=== PATIENT | male | born 1970 | race American Indian/Alaskan Native ===

== ENCOUNTER 2019-09-12 05:58 | Observation (INO) | payer BC, OTHER ==
[~2019-09-12 05:58] MED LIST: LACTATED RINGERS 1,000 ML IV SCH
[2019-09-12] MEDS ORDERED: MIDAZOLAM 2 MG/2 ML INJ IV NR (06:00)
[2019-09-12] MEDS ORDERED: ceFAZolin/STERILE WATER 2 GM/20 ML SYRINGE IV NR (07:01)
--- NOTE | 2019-09-12 07:21 | Anesthesia Day of Surgery ---
Anesthesia Day of Surgery - Day of Surgery Patient Examined: Yes Patient H&P Reviewed: Yes Patient is NPO: Yes Beta Blockers: Yes
--- NOTE | 2019-09-12 07:21 | Anesthesia Consultation ---
Anesthesia Consult and Med Hx Date of service: 09/12/19 - Airway Anesthetic Teeth Evaluation: Good ROM Head & Neck: Adequate Mental/Hyoid Distance: Adequate Mallampati Class: Class III Intubation Access Assessment: Possibly Difficult (large childress) - Pulmonary Exam CTA: Yes - Cardiac Exam Cardiac Exam: RRR - Pre-Operative Health Status ASA Pre-Surgery Classification: ASA3 Proposed Anesthetic Plan: General - Pulmonary Hx Smoking: No Hx Sleep Apnea: Yes (uses mouthpiece) - Cardiovascular System Hx Hypertension: Yes Hx Heart Attack/AMI: No (Normal EF 07/2019) Hx Percutaneous Transluminal Coronary Angioplasty (PTCA): No Hx Cardia Arrhythmia: Yes (pAfib; took antiarrythmic 09/11 PM) Hx Pacemaker: No Hx Internal Defibrillator: No Hx Valvular Heart Disease: No (no sig valve lesions on TTE 07/2019) - Central Nervous System CVA: No - Gastrointestinal Hx Ulcer: Yes (PUD) Hx Gastroesophageal Reflux Disease: Yes (well controlled) - Endocrine Hx Renal Disease: No Hx Liver Disease: No Hx Insulin Dependent Diabetes: No Hx Non-Insulin Dependent Diabetes: No Hx Thyroid Disease: No - Other Systems Hx Obesity: Yes (BMI 37) - Additional Comments Anesthesia Medical History Comments: Cardiac records on chart.
[2019-09-12] MEDS ORDERED: fentaNYL 100 MCG/2 ML INJ IV PRN (07:24)
[2019-09-12] MEDS ORDERED: HYDROmorphone 1 MG/1 ML INJ ONE (07:30)
[2019-09-12] MEDS ORDERED: PROPOFOL 200 MG/20 ML VIAL IV ONE (07:30)
[2019-09-12] MEDS ORDERED: LIDOCAINE MPF (2%) 20 MG/1 ML VIAL 5 ML ONE (07:30)
[2019-09-12] MEDS ORDERED: WATER FOR IRRIG STERILE 2000 ML IR ONE (08:20)
[2019-09-12] MEDS ORDERED: ONDANSETRON 4 MG/2 ML INJ ONE (08:24)
[2019-09-12] MEDS ORDERED: ONDANSETRON 4 MG/2 ML INJ IV PRN (08:32)
[2019-09-12] MEDS ORDERED: MORPHINE 4 MG/1 ML INJ IV PRN (08:32)
--- NOTE | 2019-09-12 08:32 | Short Stay Summary ---
Short Stay Documentation Date of service: 09/12/19 - History Past Medical History: atrial fib Social history: no significant social history, smoking - Allergies and Medications Current Medications: Allergies shellfish derived Adverse Reaction (Verified 01/20/16 12:53) Swelling Home Medications Medication Instructions Recorded Confirmed Last Taken Type Propafenone [Rythmol] 150 mg PO DAILY 01/06/15 09/12/19 09/11/19 History Simvastatin 40 mg PO DAILY 01/06/15 09/12/19 09/11/19 History Metoprolol Xl [Metoprolol 25 mg PO QDAY #30 tablet 02/10/16 09/12/19 09/11/19 Rx SUCCINATE ER TAB] Chlorthalidone 25 mg PO DAILY 09/09/19 09/09/19 09/11/19 History Active Medications Cefazolin Sodium (Ancef/Sterile Water 2 Gm/20 Ml) 2 gm IV PREOP NR Stop: 09/12/19 16:00 Fentanyl (Sublimaze) 50 mcg IV Q15M PRN PRN Reason: Pain , Severe (7-10) Stop: 09/12/19 22:00 Lactated Ringer's (Lactated Ringers) 1,000 mls @ 100 mls/hr IV DIRECT DIANNA Last Admin: 09/12/19 06:40 Dose: 100 mls/hr Documented by: Midazolam HCl (Versed) 2 mg IV PREOP NR Stop: 09/12/19 23:59 Last Admin: 09/12/19 07:35 Dose: 2 mg Documented by: - Physical exam General appearance: no acute distress, well-nourished Integumentary: no rash, no growths Lungs: Clear to auscultation Heart: Regular rate, Normal S1 Gastrointestinal: normal Rectal Exam: normal rectal tone Extremities: no ischemia, No edema - Brief post op/procedure progress note Date of procedure: 09/12/19 Pre-op diagnosis: left hydronephrosis Procedure: cysto, right rpg, left uretersocopy--- no stent needs perc tube spoke with Dr. Damico Anesthesia: PATTIA Surgeon: JOCY JONES Specimen disposition: to lab Condition: stable - Disposition Disposition: - TO HOME OR SELFCARE Short Stay Discharge Plan Follow up with: PACHECO MARCANO MD [Primary Care Provider] - 7 Days
[2019-09-12] MEDS ORDERED: SODIUM CHLORIDE 0.45% 1000 ML 1,000 ML IV SCH (09:00)
[2019-09-12] MEDS ORDERED: LIDOCAINE (2%) 20 MG/1 ML VIAL 20 ML MDV INFILTRATI ONE ×2 (09:59→12:56)
[2019-09-12] MEDS ORDERED: SODIUM CHLORIDE IRRI 500 ML 0 ML IR ONE (09:59)
[2019-09-12] MEDS ORDERED: MIDAZOLAM 2 MG/2 ML INJ ONE ×2 (09:59→12:56)
[2019-09-12] MEDS ORDERED: PROPAFENONE 150 MG TAB PO SCH (10:00)
[2019-09-12] MEDS ORDERED: NON-FORMULARY EACH (Simvastatin [Simvastatin] 40 MG) PO SCH (10:00)
[2019-09-12] MEDS ORDERED: METOPROLOL SUCCINATE XL 25 MG TAB PO SCH (10:00)
[2019-09-12] MEDS ORDERED: fentaNYL 100 MCG/2 ML INJ ONE ×3 (10:00→13:55)
--- NOTE | 2019-09-12 10:12 | Post Anesthesia Evaluation ---
- Post Anesthesia Evaluation Patient Participated: Yes Airway Patent: Yes Stable Respiratory Function: Yes Nausea/Vomiting: No Temp > 96.8F: Yes Pain Manageable: Yes Adequeate Hydration: Yes Anesthesia Complications: No Other Comments: Patient recovered in PACU then taken to photonic laboratory technician for additional procedure.
[2019-09-12] MEDS ORDERED: SODIUM CHLORIDE 0.9% 500 ML 0 ML ONE (10:13)
[2019-09-12 10:48] LABS: Basophils % (Auto) 0.6 % (0.0-1.8); Eosinophils # (Auto) 0.1 K/mm3 (0.0-0.4); Hematocrit 38.2 % (35.5-45.6); Hemoglobin 12.7 gm/dl (11.8-15.2); Lymphocytes % (Auto) 26.5 % (13.4-35.0); Mean Corpuscular HGB Conc 33 % (32-34); Mean Corpuscular Volume 95 fl (84-94); Monocytes # (Auto) 0.6 K/mm3 (0.0-0.8); Monocytes % (Auto) 8.3 % (0.0-7.3); Platelet Count 294 K/mm3 (140-440); Red Blood Count 4.01 M/mm3 (3.65-5.03); Red Cell Distribution Width 12.7 % (13.2-15.2)
[2019-09-12 10:59] LABS: INR 1.03 (0.87-1.13)
[2019-09-12 11:00] LABS: Partial Thromboplastin Time 30.9 Sec. (24.2-36.6)
[2019-09-12 11:05] LABS: Calcium 9.4 mg/dL (8.4-10.2)
[2019-09-12] MEDS: SODIUM CHLORIDE IRRI 500 ML 500 ML IR ONE ×2 (13:10→13:16)
[2019-09-12] MEDS: SODIUM CHLORIDE 0.9% 500 ML 500 ML ONE ×2 (13:10→13:16)
[2019-09-12] MEDS ORDERED: HEPARIN/NS 5000 UNITS/500 ML BAG (CATH LAB ONLY) IR ONE (13:10)
[2019-09-12] MEDS ORDERED: fentaNYL 100 MCG/2 ML INJ IV ONE (13:11)
[2019-09-12] MEDS ORDERED: MIDAZOLAM 2 MG/2 ML INJ IV ONE (13:11)
[2019-09-12] MEDS ORDERED: LIDOCAINE MPF (2%) 20 MG/1 ML VIAL 5 ML INFILTRATI ONE (13:12)
[2019-09-12] MEDS ORDERED: ceFAZolin/NS 1 GM/50 ML 1 GM/50 ML BAG IV SCH (14:00)
[2019-09-12] MEDS ORDERED: HYDROcodone/ACETAMINOPHEN 5-325 MG TAB PO PRN (14:37)
[2019-09-12] MEDS ORDERED: MORPHINE 2 MG/1 ML INJ ONE (14:43)
[2019-09-12] MEDS ORDERED: MORPHINE 2 MG/1 ML INJ IV ONE (14:48)
--- NOTE | 2019-09-12 14:56 | Cat Scan Report ---
CT ABDOMEN AND PELVIS WITHOUT CONTRAST HISTORY: hydronephrosis COMPARISON: 02/08/2016 TECHNIQUE: Axial CT images were obtained through the abdomen and pelvis without IV contrast. Sagittal and coronal reformatted images. All CT scans at this location are performed using CT dose reduction for ALARA by means of automated exposure control. FINDINGS: CT ABDOMEN: Lung Bases: Mild linear atelectasis at both lung bases. Liver: No significant abnormality. Biliary: No significant abnormality. Spleen: No significant abnormality. Unenlarged. Pancreas: No significant abnormality. Adrenals: No significant abnormality. Kidneys: The right kidney is normal size, contour and position. A 7 mm calyceal stone is noted near t he inferior pole of the right kidney. There is mild prominence of the right renal pelvis and proximal right ureter but no obvious obstructing lesion is identified in the right collecting system. The lef t kidney demonstrates diffuse cortical thinning. A left nephrostomy tube is in place which has been i njected with IV contrast. There are multiple stones throughout the mid and distal left ureter as well as mild left hydronephrosis. Lymphatics: No lymphadenopathy. Vasculature: No significant abnormality. Bowel/Peritoneum: No significant abnormality. No free air. No free fluid. Normal appendix. CT PELVIS: : No significant abnormality. Osseous Structures: No significant abnormality. Additional Findings: None IMPRESSION: Bilateral nephrolithiasis. A solitary calyceal stone measuring 7 mm is identified in the inferior rig ht kidney. There are numerous stones in the mid and distal left ureter which mildly obstructing. Plate Slitter And Inspector matthieu obstructive uropathy is suspected in the left kidney. No acute inflammatory process is identified. Signer Name: Delfino Martinez Jr, MD Signed: 09/12/2019 2:52 PM Workstation Name: [id number]
[2019-09-12] MEDS ORDERED: HYDROcodone/ACETAMINOPHEN 5-325 MG TAB ONE (15:05)
--- NOTE | 2019-09-12 15:16 | Operative Report ---
Operative Report Operative Report: Exam: Left nephrostomy tube placement Clinical indication: Patient with a history of left hydronephrosis and an obstructing ureteral stone Date: 09/12/2019 Procedure: Following an explanation of the risks, benefits and alternatives; written informed consent was obtained. The patient was brought to the ang iographic suite and placed in prone position on the examination table. The patient was prepped and draped in the usual sterile fashion. Initial ultrasound evaluation of the kidney demonstrated a markedly hydronephrotic kidney, an gateman was asked to review the live imaging to determine the degree of hydronephrosis. An appropriate exit site was chosen along the lateral posterior flank. 1% lidocaine was used for anesthesia. Under ultrasound guidance, a 15 cm 21-gauge needle was advanced into the posterior aspect of the kidney, individual calyces could not be identified secondary to marked hydronephrosis. A 0.018 guidewire was advanced and coiled within the renal pelvis. The needle was removed and an AccuStick transition dilator placed over the guidewire and advanced into the renal pelvis. Contrast was injected which demonstrated a markedly hydronephrotic kidney. The anterior dilated calyces filled on delayed imaging. The 0.018 guidewire was in exchange for a 0.035 guidewire was advanced into the proximal ureter. The AccuStick transition dilator was exchanged for a vertebral catheter and attempts to pass a vertebral catheter and guidewire passed a stricture and stone in the mid ureter were unsuccessful. The guidewire was then coiled within the renal pelvis. The vertebral catheter was removed and following serial dilation over the guidewire under fluoroscopy, an 8 Sammarinese nephrostomy tube was placed over the guidewire under fluoroscopy. There is prompt return of mildly bloody urine. The catheter was securely fastened skin surface using 3-0 Ethilon suture in a state 6 device. Catheter was in place to dependent drainage. Sterile dressing was applied. The patient tolerated the procedure well. There were no immediate post procedure complications. Given the patulous nature of the kidney, the patient was taken to CT following the procedure to document appropriate positioning of the nephrostomy tube and the degree of hydronephrosis. Nephrostomy tube was in appropriate positioning on CT imaging. Conscious sedation was performed under the guidance or radiologic nursing. Continuous cardiopulmonary monitoring was utilized. Impression: Ultrasound and fluoroscopic guided placement of left nephrostomy tube in a markedly hydronephrotic kidney.
--- NOTE | 2019-09-12 15:18 | Consultation ---
History of Present Illness - Reason for Consult Consult date: 09/12/19 hydronephrosis - History of Present Illness Patient with a history of bilateral nephrolithiasis and left hydronephrosis. T he patient has previously undergone urinary interventions including placement of a left nephrostomy tube. The patient was brought to the hospital today for placement of a left ureteral stent however, given the degree of stone Birden in the left ureter, this was not able to be placed in an antegrade fashion. Past History Past Medical History: atrial fib, other (nephrolithiasis) Past Surgical History: Other (prior left nephrostomy tube) Social history: no significant social history, smoking Medications and Allergies Allergies Allergy/AdvReac Type Severity Reaction Status Date / Time shellfish derived AdvReac Swelling Verified 01/20/16 12:53 Home Medications Medication Instructions Recorded Confirmed Last Taken Type RX: Propafenone [Rythmol] 150 mg PO DAILY 01/06/15 09/12/19 09/11/19 History RX: Simvastatin 40 mg PO DAILY 01/06/15 09/12/19 09/11/19 History RX: Metoprolol Xl [Metoprolol 25 mg PO QDAY #30 tablet 02/10/16 09/12/19 09/11/19 Rx SUCCINATE ER TAB] Chlorthalidone 25 mg PO DAILY 09/09/19 09/09/19 09/11/19 History Active Meds: Active Medications Acetaminophen/Hydrocodone Bitart ([place] 5/325) 1 each PO NOW PRN PRN Reason: Pain, Moderate (4-6) Last Admin: 09/12/19 15:05 Dose: 1 each Documented by: Cefazolin Sodium (Ancef/Sterile Water 2 Gm/20 Ml) 2 gm IV PREOP NR Stop: 09/12/19 16:00 Fentanyl (Sublimaze) 50 mcg IV Q15M PRN PRN Reason: Pain , Severe (7-10) Stop: 09/12/19 22:00 Sodium Chloride (Nacl 0.45% 1000 Ml) 1,000 mls @ 75 mls/hr IV DIRECT DIANNA Cefazolin Sodium (Ancef/Ns 1 Gm/50 Ml) 1 gm in 50 mls @ 100 mls/hr IV Q8H DIANNA; Protocol Stop: 09/12/19 22:29 Metoprolol Succinate (Metoprolol Xl) 25 mg PO QDAY DIANNA Last Admin: 09/12/19 15:06 Dose: 25 mg Documented by: Midazolam HCl (Versed) 2 mg IV PREOP NR Stop: 09/12/19 23:59 Last Admin: 09/12/19 07:35 Dose: 2 mg Documented by: Morphine Sulfate (Morphine) 4 mg IV Q4H PRN PRN Reason: Pain , Severe (7-10) Ondansetron HCl (Zofran) 4 mg IV Q8H PRN PRN Reason: N/V unrelieved by Reglan Pravastatin Sodium (Pravachol) 80 mg PO QHS [facility] Propafenone HCl (Rythmol) 150 mg PO DAILY [facility] Last Admin: 09/12/19 15:05 Dose: 150 mg Documented by: Review of Systems All systems: negative Exam - Constitutional Vitals: Temp Pulse Resp BP Pulse Ox 98.5 F 69 12 115/55 96 09/12/19 14:17 09/12/19 15:06 09/12/19 15:00 09/12/19 15:06 09/12/19 15:00 General appearance: Present: no acute distress - EENT Eyes: Present: EOM intact ENT: hearing intact - Neck Neck: Present: supple, normal ROM - Respiratory Respiratory effort: normal - Abdominal General gastrointestinal: Present: deferred Male genitourinary: Present: deferred - Rectal Rectal Exam: deferred - Psychiatric Psychiatric: appropriate mood/affect, cooperative Results - Labs CBC & Chem 7: 09/12/19 10:35 09/12/19 10:35 Labs: Abnormal lab results 09/12/19 09/12/19 Range/Units 10:35 10:35 MCV 95 H (84-94) fl RDW 12.7 L (13.2-15.2) % [place] % (Auto) 8.3 H (0.0-7.3) % BUN 21 H (9-20) mg/dL Creatinine 1.7 H (0.8-1.5) mg/dL Glucose 111 H (75-100) mg/dL Assessment and Plan Patient with left hydronephrosis. The patient will be brought to the film laboratory technician for placement of a left nephrostomy tube today. Following this, the patient may be discharged. He will be scheduled for outpatient placement of a nephrourete ral stent next .
[2019-09-12 15:36] VITALS: BP 95/40
--- NOTE | 2019-09-12 15:47 | Fluoroscopy Report ---
FLUOROSCOPY RETROGRADE UROGRAPHY HISTORY: Bilateral ureteral stones, left ureteral stricture FINDINGS: 2 minutes and 4 seconds of fluoroscopy time was provided by radiology during retrograde uro graphy by the urologist. 5 fluoroscopic images are presented. There is moderate right hydronephrosis from a nonobstructing stone in the proximal right ureter. The left collecting system cannot be evalua ross because of the left ureteral stricture. Please correlate with the procedural report by Dr. Vázquez . Signer Name: Delfino Martinez Jr, MD Signed: 09/12/2019 3:42 PM Workstation Name: [id number]
[2019-09-12] MEDS ORDERED: PRAVASTATIN 80 MG TAB PO SCH (22:00)
--- NOTE | 2019-09-21 12:24 | Operative Report ---
PREOPERATIVE DIAGNOSIS: Left ureteral stone. POSTOPERATIVE DIAGNOSIS: Left ureteral stone. Also significant left ureteral edema and stricture. PROCEDURE: Cystoscopy, bilateral retrograde pyelograms, left ureteroscopy, attempted stent placement. SURGEON: Kaiser Vázquez MD ANESTHESIA: General. ESTIMATED BLOOD LOSS: Minimal. FLUIDS: Crystalloid. COMPLICATIONS: No complications. INDICATIONS: This patient is a 49-year-old gentleman known to our service with history of kidney stones. He had recent back pain. He underwent CT of abdomen and pelvis, found to have 2 stones in the left ureter approximately 7 mm in diameter. Discussed options. He agreed to proceed with surgical intervention. DESCRIPTION OF PROCEDURE: The patient was taken to the operative suite, placed in a supine position. After adequate general anesthesia, placed in a dorsal lithotomy position, prepped and draped in a sterile fashion. Pancystourethroscopy was performed with 22-Somali Storz cystoscope, no urethral abnormalities. His prostate was nonobstructing. His bladder, no tumors or stones were noted. Bilateral retrograde pyelograms were obtained with an 8-Somali Williams catheter and 8 mL of contrast. No filling defects or obstruction on the right. Left side could only get dye in the distal aspect of the ureter. At this point, attempts to place a wire up the ureter were unsuccessful. I then used a 7-Somali rigid ureteroscope, was able to get up into the ureter to the level of concern. Obvious dense stricture could be appreciated. Multiple attempts to advance a 0.35 Glidewire and a 0.25 Glidewire were unsuccessful. At this point, I thought it was prudent to discontinue the procedure. Bladder was drained. Rectal exam was benign. He was extubated and taken to recovery room in stable condition. At that point, I consulted Dr. Mathieu Damico who is interventional radiologist to place a left nephrostomy tube. JOB# [id number] RIRI/LOREN
== END 2019-09-12 16:29 | disposition home or self-care (01) ==
LOC: OR 05:58 → 3B-SURG 08:32 → 3A 16:11
PROVIDERS: ADMIT Urology; ATTEND Urology
DX: N20.0 Calculus of kidney (principal); I48.91 Unspecified atrial fibrillation; I10 Essential (primary) hypertension; G47.30 Sleep apnea, unspecified; E78.2 Mixed hyperlipidemia
CPT/HCPCS: 36415; 50432; 74176; 74420; 76937; 80048; 82962; 85025; 85610; 85730; 96365; 96375; A4217; C1729; C1751; C1758; C1769; C2617; G0378; J0690; J1170; J1956; J2250; J2270; J2405; J2704; J3010; J7040; J7120; Q9967; 96374; A9270-GY; J1644

== ENCOUNTER 2019-09-18 06:52 | Day surgery (SDC) | payer BC ==
[2019-09-18 07:58] LABS: Hematocrit 36.3 % (35.5-45.6); Hemoglobin 12.3 gm/dl (11.8-15.2); Mean Corpuscular HGB Conc 34 % (32-34); Mean Corpuscular Volume 96 fl (84-94); Platelet Count 294 K/mm3 (140-440); Red Blood Count 3.78 M/mm3 (3.65-5.03); Red Cell Distribution Width 12.9 % (13.2-15.2)
[2019-09-18] MEDS ORDERED: SODIUM CHLORIDE 0.9% 500 ML 500 ML IV SCH (08:00)
[2019-09-18] MEDS ORDERED: SODIUM CHLORIDE IRRI 500 ML 500 ML IR ONE (08:03)
--- NOTE | 2019-09-18 08:08 | Short Stay Summary ---
Short Stay Documentation Date of service: 09/18/19 - History Principal diagnosis: left hydronephrosis, left ureteral stent Past Medical History: other (hydronephrosis) Past Surgical History: Other (left nephrostomy tube placement) Social history: no significant social history, lives with family - Allergies and Medications Current Medications: Allergies shellfish derived Adverse Reaction (Verified 01/20/16 12:53) Swelling Home Medications Medication Instructions Recorded Confirmed Last Taken Type Propafenone [Rythmol] 150 mg PO DAILY 01/06/15 09/18/19 09/16/19 History Simvastatin 40 mg PO DAILY 01/06/15 09/18/19 09/16/19 History Metoprolol Xl [Metoprolol 25 mg PO QDAY #30 tablet 02/10/16 09/18/19 09/16/19 Rx SUCCINATE ER TAB] Chlorthalidone 25 mg PO DAILY 09/09/19 09/09/19 09/17/19 History Ciprofloxacin HCl [Ciprofloxacin 500 mg PO BID 09/18/19 09/18/19 09/17/19 History TAB] Active Medications Sodium Chloride (Nacl 0.9% 500 Ml) 500 mls @ 50 mls/hr IV DIRECT DIANNA Levofloxacin/Dextrose (Levaquin 500mg/100ml) 500 mg in 100 mls @ 100 mls/hr IV PREOP NR; Protocol Stop: 09/18/19 08:59 - Physical exam General appearance: no acute distress Integumentary: no rash, no growths HEENT: Atraumatic Lungs: Normal air movement Breasts: deferred Heart: Regular rate Gastrointestinal: normal Male Genitourinary: deferred Rectal Exam: deferred Extremities: Full ROM Neurological: Normal gait, Normal speech - Brief post op/procedure progress note Date of procedure: 09/18/19 Pre-op diagnosis: Left hydronephrosis and ureteral stones Post-op diagnosis: same Procedure: Fluoroscopic guided nephrostomy tube exchange, nephrostogram, ureterogram with attempted cannulation past occluded stones. Anesthesia: local Surgeon: CHRISSY MUÑOZ Estimated blood loss: minimal Pathology: none Condition: stable - Disposition Condition at discharge: Good Disposition: DC-01 TO HOME OR SELFCARE Short Stay Discharge Plan Activity: advance as tolerated Weight Bearing Status: Weight Bear as Tolerated Diet: regular Wound: keep clean and dry, per your surgeon's advice Follow up with: PACHECO MARCANO MD [Primary Care Provider] - 7 Days
[2019-09-18 08:10] LABS: INR 1.08 (0.87-1.13)
[2019-09-18 08:11] LABS: Partial Thromboplastin Time 31.3 Sec. (24.2-36.6)
[2019-09-18 08:14] LABS: BUN/Creatinine Ratio 13; Blood Urea Nitrogen 18 mg/dL (9-20); Calcium 9.1 mg/dL (8.4-10.2); Hemolysis Index 36
[2019-09-18] MEDS: MIDAZOLAM 2 MG/2 ML INJ ONE ×2 (09:02→09:05)
[2019-09-18] MEDS: fentaNYL 100 MCG/2 ML INJ ONE ×3 (09:02→09:27)
[2019-09-18] MEDS: LIDOCAINE 1%/EPINEPHRINE 1:100,000 VIAL (20 ML) INFILTRATI ONE ×3 (09:02→09:34)
--- NOTE | 2019-09-18 09:52 | Operative Report ---
Operative Report Operative Report: Exam: Left nephrostogram through indwelling nephrostomy tube, attempted passage of catheter passed mid ureteral stones, fluoroscopic guided exchange of nephrostomy tube Clinical indication: Patient with mid ureteral stones there are occlusive, unable to place a stent in a retrograde fashion during cystoscopy, patient status post placement of the left nephrostomy tube for decompression. Date: 09/18/2019 Procedure: Following an explanation of the risks, benefits and alternatives; written informed consent was obtained. The patient was brought to the fluoroscopic suite and placed in prone position on the examination table. The patient's left back and indwelling nephrostomy tube were prepped and draped in the usual sterile fashion. 1% lidocaine was used for anesthesia at the catheter exit site along the tract. Contrast was gently injected through the indwelling nephrostomy tube. This demonstrates decompression of the left kidney. There is no significant transit of contrast down the ureter. The suture was cut. The catheter was cut to release the pigtail in a 0.035 guidewire advanced through the catheter coiled within the renal pelvis. The indwelling catheter was removed. An 8 Greenlandic 23 cm sheath was then advanced over the guidewire to the renal pelvis. The trocar was removed and a 4 Greenlandic vertebral catheter advanced over the guidewire. Together the guidewire and catheter were advanced to the mid ureter. Attempts to pass the guidewire passed the occluding stones were unsuccessful. Contrast was injected which pacifies to 7 a millimeter stones within the mid ureter. With the guidewire in the mid ureter, the vertebral catheter was removed and the trocar the sheath advanced over the guidewire. The sheath was then advanced to just proximal to the stenosis. A variety of guidewires was utilized in attempt to cross the ureteral exclusion without success. Ultimately, the sheath was removed and a new A Greenlandic approximately 2 placed over the guidewire coiled within the renal pelvis. The guidewire trocar of the catheter were removed. The kidney was allowed to decompressing contrast gently injected to document appropriate positioning of the pigtail within the renal pelvis. The catheter was securely fastened to the skin surface using 2-0 Ethilon suture in a state takes twice. The catheter was then placed to dependent drainage. The patient tolerated the procedure well. There were no immediate post procedure complications. Conscious sedation was administered under the guidance or radiologic nursing. Continuous cardiopulmonary monitoring was utilized. Impression: Left nephrostogram through indwelling nephrostomy tube and attempted passage of catheter passed mid-ureteral stones. Nephrostogram demonstrates a decompressed kidney following placement of a nephrostomy tube, there is complete occlusion of the mid ureter secondary to the stones. 2) Fluoroscopic guided exchange of indwelling nephrostomy tube.
[2019-09-18 10:48] VITALS: BP 150/83
== END 2019-09-18 11:05 | disposition home or self-care (01) ==
LOC: CATH 06:52 → CATHLABREC 06:52
PROVIDERS: ATTEND Radiology Diagnostic Radiology
DX: N13.2 Hydronephrosis with renal and ureteral calculous obstruction (principal); I10 Essential (primary) hypertension; I48.91 Unspecified atrial fibrillation; G47.30 Sleep apnea, unspecified; E78.00 Pure hypercholesterolemia, unspecified; M19.90 Unspecified osteoarthritis, unspecified site; J45.909 Unspecified asthma, uncomplicated; K21.9 Gastro-esophageal reflux disease without esophagitis; E66.9 Obesity, unspecified; Z68.36 Body mass index [BMI] 36.0-36.9, adult; Z98.890 Other specified postprocedural states; Z91.013 Allergy to seafood; Z79.899 Other long term (current) drug therapy; Z83.3 Family history of diabetes mellitus; Z82.61 Family history of arthritis; Z82.49 Family history of ischemic heart disease and other diseases of the circulatory system
CPT/HCPCS: 36415; 50435; 80048; 85027; 85610; 85730; 99156; 99157; C1729; C1751; C1769; J1956; J2250; J3010; J7040; Q9967

== ENCOUNTER 2019-09-25 11:41 | Day surgery (SDC) | payer BC ==
--- NOTE | 2019-09-25 12:43 | Anesthesia Consultation ---
Anesthesia Consult and Med Hx Date of service: 09/25/19 - Airway Anesthetic Teeth Evaluation: Good ROM Head & Neck: Adequate Mental/Hyoid Distance: Adequate Mallampati Class: Class II Intubation Access Assessment: Good - Pulmonary Exam CTA: Yes - Cardiac Exam Cardiac Exam: RRR - Pre-Operative Health Status ASA Pre-Surgery Classification: ASA3 Proposed Anesthetic Plan: General - Pulmonary Hx Smoking: No Hx Asthma: Yes (childhood only) SOB: Yes Hx Sleep Apnea: Yes (DX SLEEP APNEA,NO CPAP,USES MOUTHPIECE ONLY) - Cardiovascular System Hx Hypertension: Yes (ON MEDS X 1 MONTH) Hx Heart Attack/AMI: No (Normal EF 07/2019) Hx Percutaneous Transluminal Coronary Angioplasty (PTCA): No Hx Cardia Arrhythmia: Yes (pAfib; took antiarrythmic 09/11 PM) Hx Pacemaker: No Hx Internal Defibrillator: No Hx Valvular Heart Disease: No (no sig valve lesions on TTE 07/2019) Hx Heart Murmur: Yes Hx Peripheral Vascular Disease: No - Central Nervous System CVA: No Hx Back Pain: Yes Hx Psychiatric Problems: No - Gastrointestinal Hx Ulcer: Yes (PUD) Hx Gastroesophageal Reflux Disease: Yes (well controlled) - Endocrine Hx Renal Disease: No Hx Liver Disease: No Hx Insulin Dependent Diabetes: No Hx Non-Insulin Dependent Diabetes: No Hx Thyroid Disease: No - Hematic Hx Anemia: No - Other Systems Hx Alcohol Use: No Hx Substance Use: No Hx Cancer: No Hx Obesity: Yes (BMI 37) - Additional Comments Anesthesia Medical History Comments: Afib, HTN, SARA, GERD for GA -
--- NOTE | 2019-09-25 12:44 | Anesthesia Day of Surgery ---
Anesthesia Day of Surgery - Day of Surgery Patient Examined: Yes Patient H&P Reviewed: Yes Patient is NPO: Yes
[2019-09-25] MEDS ORDERED: ROCURONIUM 50 MG/5 ML INJ IV ONE (13:00)
[2019-09-25] MEDS ORDERED: dexAMETHasone 20 MG/5 ML VIAL ONE (13:00)
[2019-09-25] MEDS ORDERED: ONDANSETRON 4 MG/2 ML INJ ONE (13:00)
[2019-09-25] MEDS ORDERED: fentaNYL 100 MCG/2 ML INJ ONE (13:08)
[2019-09-25] MEDS ORDERED: LIDOCAINE MPF (2%) 20 MG/1 ML VIAL 5 ML ONE (13:08)
[2019-09-25] MEDS ORDERED: PROPOFOL 200 MG/20 ML VIAL IV ONE (13:09)
[2019-09-25] MEDS ORDERED: ceFAZolin/STERILE WATER 2 GM/20 ML SYRINGE IV NR (13:10)
[2019-09-25] MEDS ORDERED: MIDAZOLAM 2 MG/2 ML INJ IV ONE (13:11)
[2019-09-25] MEDS ORDERED: LACTATED RINGERS 1,000 ML IV SCH (13:12)
[2019-09-25] MEDS ORDERED: IOHEXOL 300 MG/ML 50ML IV ONE (13:58)
--- NOTE | 2019-09-25 14:21 | Short Stay Summary ---
Short Stay Documentation Date of service: 09/25/19 - History H&P: obtained from office - Allergies and Medications Current Medications: Allergies shellfish derived Adverse Reaction (Verified 01/20/16 12:53) Swelling Home Medications Medication Instructions Recorded Confirmed Last Taken Type Propafenone [Rythmol] 150 mg PO DAILY 01/06/15 09/25/19 09/24/19 20:00 History Simvastatin 40 mg PO DAILY 01/06/15 09/25/19 09/24/19 20:00 History Metoprolol Xl [Metoprolol 25 mg PO QDAY #30 tablet 02/10/16 09/25/19 09/24/19 20:00 Rx SUCCINATE ER TAB] Chlorthalidone 25 mg PO DAILY 09/09/19 09/25/19 09/24/19 08:00 History Ciprofloxacin HCl [Ciprofloxacin 500 mg PO BID 09/18/19 09/25/19 09/24/19 08:00 History TAB] Active Medications Cefazolin Sodium (Ancef/Sterile Water 2 Gm/20 Ml) 2 gm IV PREOP NR Stop: 09/25/19 23:59 Lactated Ringer's (Lactated Ringers) 1,000 mls @ 100 mls/hr IV DIRECT DIANNA Last Admin: 09/25/19 13:15 Dose: 100 mls/hr Documented by: - Brief post op/procedure progress note Date of procedure: 09/25/19 Pre-op diagnosis: left ureteral stone , edema, stricture Post-op diagnosis: same Procedure: cysto, left rpg, left ureteroscopy, left nephrostogram Anesthesia: GETA Surgeon: JOCY JONES Condition: stable - Hospital course Hospital course: dilaudid 2mg, cipro on chart - Disposition Condition at discharge: Stable Disposition: DC-01 TO HOME OR SELFCARE Short Stay Discharge Plan Follow up with: PACHECO MARCANO MD [Primary Care Provider] - 7 Days
[2019-09-25 15:02] VITALS: BP 118/60
--- NOTE | 2019-09-26 08:30 | Post Anesthesia Evaluation ---
- Post Anesthesia Evaluation Patient Participated: Yes Airway Patent: Yes Stable Respiratory Function: Yes Nausea/Vomiting: No Temp > 96.8F: Yes Pain Manageable: Yes Adequeate Hydration: Yes Anesthesia Complications: No Block Receding Appropriately: Not Applicable Patient on Ventilator: No
--- NOTE | 2019-10-06 11:33 | Operative Report ---
PREOPERATIVE DIAGNOSIS: Left ureteral stone with edema stricture. POSTOPERATIVE DIAGNOSIS: Left ureteral stone with edema stricture. PROCEDURE: Cystoscopy, left retrograde pyelogram, left ureteroscopy, left nephrostogram. SURGEON: Kaiser Vázquez MD ANESTHESIA: General. ESTIMATED BLOOD LOSS: Minimal. FLUIDS: Crystalloid. COMPLICATIONS: No complications. INDICATIONS: This patient is a 49-year-old gentleman known to our service with a history of right kidney stones, was found to have left ureteral stones on CT. Attempted stone extraction in the past was unsuccessful. The patient with resultant nephrostogram due to edema and stricture. He presents now for a staged procedure. DESCRIPTION OF PROCEDURE: The patient was taken to the operative suite, placed in the supine position. After adequate general anesthesia, placed in a dorsal lithotomy position, prepped and draped in a sterile fashion. Pancystourethroscopy was performed with a 22-Erit[place] Storz cystoscope. No urethral abnormalities. His prostate was minimally obstructing his bladder. No tumors or stones were noted. Left retrograde pyelogram was obtained with an 8-Erit[place]an Williams catheter and 8 mL of contrast, was able to get a small wisp of dye in the distal ureter. Attempts at a 0.035 as well as a 0.025 guidewire to be advanced up the collecting system were unsuccessful. Rigid ureteroscopy was then performed. The scope was advanced into the left ureter approximately 3 cm; however, there is a dense stricture that could be appreciated. Multiple attempts to place the 0.035 Glidewire and 0.025 Glidewire through the stricture were unsuccessful. Attempts to inject dye further into the upper tracts were unsuccessful. The patient also had nephrostomy tubes at this point. I removed the scope, went to the flank and injected 10 mL of dye via the nephrostomy tube and could only get a nephrostogram, but no dye down the ureter. At this point, after it was prudent to discontinue the procedure, the patient was extubated and taken to recovery room, was scheduled for nuclear scan to evaluate whether further treatment of the stone should be taken or more aggressive measures via reimplant, nephrectomy, etc. JOB# [id number] CHRISC/NTS
== END 2019-09-25 15:35 | disposition home or self-care (01) ==
LOC: OR 11:41
PROVIDERS: ATTEND Urology
DX: N20.2 Calculus of kidney with calculus of ureter (principal); N13.5 Crossing vessel and stricture of ureter without hydronephrosis; I10 Essential (primary) hypertension; I48.91 Unspecified atrial fibrillation; G47.30 Sleep apnea, unspecified; E78.00 Pure hypercholesterolemia, unspecified; J45.909 Unspecified asthma, uncomplicated; K21.9 Gastro-esophageal reflux disease without esophagitis; E66.9 Obesity, unspecified; M19.90 Unspecified osteoarthritis, unspecified site; Z98.890 Other specified postprocedural states; Z91.013 Allergy to seafood; Z79.899 Other long term (current) drug therapy; Z68.37 Body mass index [BMI] 37.0-37.9, adult; Z83.3 Family history of diabetes mellitus; Z82.61 Family history of arthritis; Z84.1 Family history of disorders of kidney and ureter; Z82.49 Family history of ischemic heart disease and other diseases of the circulatory system
CPT/HCPCS: 50431; 52351; 82803; C1758; C1769; J1100; J2250; J2405; J2704; J3010; J7120; Q9967

== ENCOUNTER 2019-09-30 09:12 | Outpatient (CLI) | payer BC ==
[2019-09-30] MEDS ORDERED: FUROSEMIDE 20 MG/2 ML INJ ONE (09:31)
[2019-09-30] MEDS ORDERED: FUROSEMIDE 20 MG/2 ML INJ IV ONE (09:41)
--- NOTE | 2019-09-30 11:40 | Nuclear Medicine Report ---
NUCLEAR MEDICINE RENAL SCAN CAPTOPRIL/LASIX HISTORY: Calculus of kidney, left ureteral stones. TECHNIQUE: 5 mCi of technetium 99m MAG3 was administered. Posterior perfusion and function images wer e obtained. 20 mg of IV Lasix was injected at 21 minutes. Renogram curves were constructed. COMPARISON: CT abdomen pelvis without contrast dated 09/12/2019 FINDINGS: The posterior perfusion images demonstrate apparent normal flow to the right kidney. Little if any fl ow can be appreciated due to the left kidney. The posterior function images demonstrate normal uptake of the radiotracer on the right side. There i s mild retention of the radiotracer in the right renal pelvis but there is a brisk response to IV Las ix administration. Again, little if any function of the left kidney is appreciated. Split function measures 94% right kidney and 6% left kidney. IMPRESSION: Very poor function of the left kidney as described. Relatively normal uptake and excretion of the radiotracer in the right kidney and collecting system. No obstructive uropathy. Split function measures 94% right kidney and 6% left kidney. Signer Name: Delfino Martinez Jr, MD Signed: 09/30/2019 11:35 AM Workstation Name: [id number]
== END 2019-09-30 09:13 | disposition home or self-care (01) ==
LOC: NM 09:12
PROVIDERS: ATTEND Urology
DX: N20.0 Calculus of kidney (principal); I10 Essential (primary) hypertension
CPT/HCPCS: 78708; A9562; J1940

== ENCOUNTER 2019-12-01 06:26 | Inpatient (IN) | payer BC ==
[2019-11-27 11:10] LABS: Basophils # (Auto) 0.1 K/mm3 (0.0-0.1); Eosinophils # (Auto) 0.2 K/mm3 (0.0-0.4); Eosinophils % (Auto) 1.6 % (0.0-4.3); Hematocrit 35.7 % (35.5-45.6); Hemoglobin 12.3 gm/dl (11.8-15.2); Lymphocytes # (Auto) 1.6 K/mm3 (1.2-5.4); Lymphocytes % (Auto) 15.3 % (13.4-35.0); Mean Corpuscular HGB Conc 34 % (32-34); Mean Corpuscular Volume 97 fl (84-94); Monocytes # (Auto) 0.8 K/mm3 (0.0-0.8); Monocytes % (Auto) 7.7 % (0.0-7.3); Platelet Count 510 K/mm3 (140-440); Red Cell Distribution Width 13.4 % (13.2-15.2)
[2019-11-27 11:20] LABS: INR 0.93 (0.87-1.13)
[2019-11-27 11:22] LABS: Partial Thromboplastin Time 21.5 Sec. (24.2-36.6)
[2019-11-27 11:36] LABS: Alanine Aminotransferase 13 units/L (7-56); Albumin 3.9 g/dL (3.9-5); BUN/Creatinine Ratio 10; Blood Urea Nitrogen 12 mg/dL (9-20); Hemolysis Index 27
[~2019-12-01 06:26] MED LIST changes: +ACETAMINOPHEN 500 MG TAB ONE; +ACETAMINOPHEN 500 MG TAB PO ONE; +CELECOXIB 200 MG CAP ONE; +CELECOXIB 200 MG CAP PO NR; +GABAPENTIN 300 MG CAP ONE; +GABAPENTIN 300 MG CAP PO NR; +LACTATED RINGERS 1,000 ML ONE; +MIDAZOLAM 2 MG/2 ML INJ IV NR; +SODIUM CHLORIDE 0.9% 500 ML 500 ML IV NR; +SODIUM CHLORIDE 0.9% 500 ML 500 ML IV ONE; +ceFAZolin/Water 2 GM/20 ML 2 GM/20 ML SYRINGE IV NR
[2019-12-01] MEDS ORDERED: BACTERIOSTATIC SODIUM CHLORIDE 0.9% 30 ML VIAL INFILTRATI ONE (06:56)
[2019-12-01] MEDS ORDERED: PROPOFOL 200 MG/20 ML VIAL IV ONE (07:16)
[2019-12-01] MEDS ORDERED: fentaNYL 250 MCG/5 ML INJ ONE (07:16)
[2019-12-01] MEDS ORDERED: LIDOCAINE MPF (2%) 20 MG/1 ML VIAL 5 ML ONE ×2 (07:16→07:18)
[2019-12-01] MEDS ORDERED: ROCURONIUM 50 MG/5 ML INJ IV ONE ×3 (07:16→09:18)
--- NOTE | 2019-12-01 07:27 | Anesthesia Consultation ---
Anesthesia Consult and Med Hx Date of service: 12/01/19 - Airway Anesthetic Teeth Evaluation: Good ROM Head & Neck: Adequate Mental/Hyoid Distance: Adequate Mallampati Class: Class III Intubation Access Assessment: Possibly Difficult - Pulmonary Exam CTA: Yes - Cardiac Exam Cardiac Exam: RRR - Pre-Operative Health Status ASA Pre-Surgery Classification: ASA3 Proposed Anesthetic Plan: General - Pulmonary Hx Smoking: No Hx Asthma: Yes (childhood only) Hx Respiratory Symptoms: No Hx Sleep Apnea: Yes (DX SLEEP APNEA,NO CPAP,USES MOUTHPIECE ONLY) - Cardiovascular System Hx Hypertension: No Hx Heart Attack/AMI: No (Normal EF 07/2019) Hx Percutaneous Transluminal Coronary Angioplasty (PTCA): No Hx Cardia Arrhythmia: Yes (pAfib; took metoprolol and propafenone this morning) Hx Pacemaker: No Hx Internal Defibrillator: No - Central Nervous System CVA: No Hx Back Pain: Yes (BACK AND NECK) Hx Psychiatric Problems: No - Gastrointestinal Hx Ulcer: Yes (PUD) Hx Gastroesophageal Reflux Disease: Yes (well controlled) - Endocrine Hx Renal Disease: Yes (2/2 renal stones; normal renal function) Hx Liver Disease: No Hx Insulin Dependent Diabetes: No Hx Non-Insulin Dependent Diabetes: No Hx Thyroid Disease: No - Hematic Hx Anemia: No - Other Systems Hx Obesity: Yes (BMI 36) - Additional Comments Anesthesia Medical History Comments: No hx anesthetic complications.
--- NOTE | 2019-12-01 07:28 | Anesthesia Day of Surgery ---
Anesthesia Day of Surgery - Day of Surgery Patient Examined: Yes Patient H&P Reviewed: Yes Patient is NPO: Yes Beta Blockers: Yes (metoprolol 12/01/2019)
[2019-12-01] MEDS ORDERED: ONDANSETRON 4 MG/2 ML INJ ONE (07:30)
[2019-12-01] MEDS ORDERED: dexAMETHasone 20 MG/5 ML VIAL ONE (07:30)
[2019-12-01] MEDS ORDERED: KETAMINE 500 MG/5 ML VIAL MDV ONE (07:45)
[2019-12-01] MEDS ORDERED: CITRIC ACID-SOD CITRATE 500 ML IV ONE (08:12)
[2019-12-01] MEDS ORDERED: THROMBIN (RECOMBINANT) 5,000 UNIT VIAL TP ONE (08:39)
[2019-12-01] MEDS ORDERED: CALCIUM CHLORIDE 1,000 MG/10 ML SYRINGE IV ONE (08:39)
[2019-12-01] MEDS ORDERED: NEOSTIGMINE 10MG/10 ML INJ MDV ONE (10:22)
[2019-12-01] MEDS ORDERED: GLYCOPYRROLATE 0.4 MG/2 ML INJ ONE (10:22)
[2019-12-01] MEDS ORDERED: SODIUM CHLORIDE 0.9% IRR 1,500 ML BOTTLE IR ONE (10:30)
--- NOTE | 2019-12-01 10:45 | History and Physical Report ---
History of Present Illness Date of examination: 12/01/19 Date of admission: 12/01/19 06:26 Chief complaint: left hydronephrosis, kidney stone, UTI, non functioning kidney 49 yr old male with left hydronephrosis, kidney stone, UTI, non functioning kidney Long hx of kidney stones with perc tube nuclear scan 6% fx left kidney / 945 fx right kidney Past History Past Medical History: atrial fib, hypertension Past Surgical History: Other (ESWL, cysto, perc tube) Social history: single Family history: other (kidney stones) Medications and Allergies Allergies Allergy/AdvReac Type Severity Reaction Status Date / Time shellfish derived AdvReac Swelling Verified 01/20/16 12:53 Home Medications Medication Instructions Recorded Confirmed Last Taken Type Propafenone [Rythmol] 150 mg PO DAILY 01/06/15 12/01/19 12/01/19 03:30 History Simvastatin 40 mg PO DAILY 01/06/15 12/01/19 11/30/19 20:00 History Metoprolol Xl [Metoprolol 25 mg PO QDAY #30 tablet 02/10/16 12/01/19 12/01/19 03:30 Rx SUCCINATE ER TAB] Chlorthalidone 25 mg PO DAILY 09/09/19 12/01/19 11/30/19 09:00 History HYDROcodone/APAP 5-325 [[place] 1 each PO Q6HR PRN 11/24/19 11/24/19 Unknown History 5/325] HYDROmorphone [Dilaudid] 2 mg PO Q6HR PRN 11/24/19 12/01/19 11/30/19 14:00 History Active Meds: Active Medications Celecoxib (Celebrex) 200 mg PO PREOP NR Stop: 12/01/19 23:59 Last Admin: 12/01/19 06:40 Dose: 200 mg Documented by: Gabapentin (Gabapentin) 600 mg PO PREOP NR Stop: 12/01/19 23:59 Last Admin: 12/01/19 06:40 Dose: 600 mg Documented by: Hydromorphone HCl (Dilaudid) 0.5 mg IV Q10MIN PRN PRN Reason: Pain , Severe (7-10) Stop: 12/01/19 14:00 Cefazolin Sodium (Ancef/Sterile Water 2 Gm/20 Ml) 2 gm in 20 mls @ 80 mls/hr IV PREOP NR; Protocol Stop: 12/01/19 23:59 Sodium Chloride (Nacl 0.9% 500 Ml) 500 mls @ 0 mls/hr IV ONCE NR Stop: 12/01/19 23:59 Lactated Ringer's (Lactated Ringers) 1,000 mls @ 100 mls/hr IV DIRECT DIANNA Last Admin: 12/01/19 07:10 Dose: 100 mls/hr Documented by: Midazolam HCl (Versed) 2 mg IV PREOP NR Stop: 12/01/19 23:59 Last Admin: 12/01/19 07:30 Dose: 2 mg Documented by: Review of Systems All systems: negative - Constitutional chronic pain Exam Vital Signs Temp Pulse Resp BP Pulse Ox 98.5 F 90 20 150/77 98 11/27/19 10:56 11/27/19 10:56 11/27/19 10:56 11/27/19 10:56 11/27/19 10:56 - General physical appearance Positive: well developed, well nourished, no distress - Neck Positive: no masses - Respiratory Positive: normal expansion - Cardiovascular Rhythm: regularly irregular - Extremities Extremities: no ischemia - Abdomen Abdomen: Present: soft, other (left perc tube) - Genitourinary Male Genitourinary: normal - Rectum Rectum: normal spincter tone - Integumentary no rash - Neurologic Neurologic: alert and oriented to time, place and person - Musculoskeletal normal gait Results - Labs 11/27/19 10:25 11/27/19 10:25 Abnormal lab results 12/01/19 Range/Units 07:00 Crossmatch See Detail Assessment and Plan - Patient Problems (1) Hydronephrosis Current Visit: Yes Status: Acute (2) Calculus of left kidney Current Visit: No Status: Acute Plan to address problem: left nephrectomy
--- NOTE | 2019-12-01 10:49 | Post Operative Note ---
Date of procedure: 12/01/19 Pre-op diagnosis: left kidney stone, UTI, non function kidney Post-op diagnosis: same Procedure: left nephrectomy, removed perc tube Anesthesia: GETA Surgeon: JOCY JONES Dinkey Locomotive Engineer: KAELA SAPP Estimated blood loss: other (200cc) Pathology: list (kidney) Specimen disposition: to lab Condition: stable Disposition: PACU
[2019-12-01] MEDS ORDERED: ACETAMINOPHEN 325 MG TAB PO PRN (10:51)
[2019-12-01] MEDS ORDERED: NALOXONE 0.4 MG/1 ML INJ IV PRN (10:51)
[2019-12-01] MEDS ORDERED: ONDANSETRON 4 MG/2 ML INJ IV PRN (10:51)
[2019-12-01] MEDS: HYDROmorphone 1 MG/1 ML INJ IV PRN ×4 (11:15→12:58)
--- NOTE | 2019-12-01 12:02 | Operative Report ---
PREOPERATIVE DIAGNOSES: Left kidney stone, left hydronephrosis, left nonfunctioning kidney. POSTOPERATIVE DIAGNOSES: Left kidney stone, left hydronephrosis, left nonfunctioning kidney. PROCEDURES: Left nephrectomy, removal of nephrostomy tube. SURGEON: Kaiser Vázquez MD FIELD MARKETING SPECIALIST: Wilmar Sanchez MD ANESTHESIA: General. ESTIMATED BLOOD LOSS: 200 mL. FLUIDS: Crystalloid. COMPLICATIONS: No complications. DRAINS: Vaughn-Patel drain x 1.. INDICATIONS: This 49-year-old gentleman known to our service since at least 2011 with a diagnosis of recurrent kidney stones, also has a strong family history of stones. He has had multiple lithotripsies and other procedures regarding his stone disease. However, as a result of this, he has developed strictures and most recently required a nephrostomy tube. Recent nuclear scan revealed 6% function of the left kidney. At this point, we discussed options that it would be not very helpful to proceed with procedures to spare this nonfunctioning kidney, trying to correct strictures, etc. He agreed to proceed with nephrectomy. Cardiac clearance was with Dr. Zacarias Porter. Risks, benefits, and complications were explained. The patient agreed to proceed with surgical intervention. DESCRIPTION OF PROCEDURE: The patient was taken to the operative suite, placed in a supine position. After adequate general anesthesia, Nuñez catheter was placed. He was then placed in a modified left flank position. Ribcage was marked. Left flank incision was made with Bovie. Sharp dissection was taken down to the muscular layers, which were opened the length of the procedure. Bookwalter retractor was used for exposure. There was significant inflammation upon opening the lumbodorsal fascia posteriorly. A densely inflamed left ureter could be appreciated. It was isolated with vessel loop. Using blunt and sharp dissection slowly we were able to dissect the kidney free posteriorly, then anteriorly, preserving the adrenal gland. Multiple clips were used for hemostasis in this area. He appeared to have a solitary artery and vein, which were dissected free after a tedious removal of scar tissue. A #1 silk was used to control the vessels, also the artery was oversewn with 2-0 Prolene. Kidney was excised. Due to inflammation, there was a small area of hydronephrotic renal pelvis that could not be removed. Copious irrigation was performed. Adequate hemostasis was achieved. Platelet membrane was placed on the anastomosis, which was dry at the time of closure. Platelet poor plasma and platelet-rich plasma was injected in the renal fossa. A 10 mm Vaughn-Patel drain was brought out through the previous perk incision, tied into position with 2-0 silk in interrupted fashion. The internal oblique fascia was closed with 0 Vicryl in a running fashion, external oblique was closed with #1 looped PDS in a running fashion. Skin was closed with kourtney. Dressing was placed. The patient tolerated the procedure well and was extubated and taken to recovery room. He will be observed in the Intensive Care Unit. JOB# [id number] RRII/LOREN
[2019-12-01] MEDS ORDERED: SODIUM CHLORIDE 0.9% 1000 ML 0 ML ONE (13:13)
[2019-12-01 13:33] LABS: Hematocrit 28.9 % (35.5-45.6); Hemoglobin 9.7 gm/dl (11.8-15.2); Mean Corpuscular HGB Conc 34 % (32-34); Mean Corpuscular Volume 94 fl (84-94); Platelet Count 395 K/mm3 (140-440); Red Blood Count 3.07 M/mm3 (3.65-5.03); Red Cell Distribution Width 13.2 % (13.2-15.2)
[2019-12-01 14:27] LABS: Calcium 8.8 mg/dL (8.4-10.2)
[2019-12-01 14:44] LABS: Basophils % (Manual) 0 % (0.0-1.8); Eosinophils % (Manual) 0 % (0.0-4.3); Platelet Estimate Consistent w Auto; RBC Morphology Normal; Total Cells Counted 100
[2019-12-01] MEDS: SODIUM CHLORIDE 0.45% 1000 ML 1,000 ML IV SCH ×2 (15:00→22:18)
--- NOTE | 2019-12-01 15:45 | Consultation ---
History of Present Illness - Reason for Consult Consult date: 12/01/19 med management Requesting physician: JOCY JONES - History of Present Illness This is a 49-year-old male with past medical history of hypertension, atrial fibrillation and hypercholesterolemia who presents with significant recent history of left hydronephrosis, renal stone, UTI and a nonfunctioning kidney on the left. Patient reported has a long history of kidney stones with percutaneous nephrostomy tube. Nuclear scan revealed 6% functioning left kidney which prompted patient to undergo left nephrectomy with removal of the percutaneous tube. Urology performed the surgery this morning and has admitted postoperatively to the ICU. Consultation for the hospitalist service to manage the medical problems of hypertension A. fib and hyperlipidemia. Patient appears to be doing well postoperatively without any complaints. Past History Past Medical History: atrial fib, hypertension, hyperlipidemia Past Surgical History: Other (ESWL, cysto, perc tube) Social history: single Family history: other (kidney stones) Medications and Allergies Allergies Allergy/AdvReac Type Severity Reaction Status Date / Time shellfish derived AdvReac Swelling Verified 01/20/16 12:53 Home Medications Medication Instructions Recorded Confirmed Last Taken Type Propafenone [Rythmol] 150 mg PO DAILY 01/06/15 12/01/19 12/01/19 03:30 History Simvastatin 40 mg PO DAILY 01/06/15 12/01/19 11/30/19 20:00 History Metoprolol Xl [Metoprolol 25 mg PO QDAY #30 tablet 02/10/16 12/01/19 12/01/19 03:30 Rx SUCCINATE ER TAB] Chlorthalidone 25 mg PO DAILY 09/09/19 12/01/19 11/30/19 09:00 History HYDROcodone/APAP 5-325 [[place] 1 each PO Q6HR PRN 11/24/19 11/24/19 Unknown History 5/325] HYDROmorphone [Dilaudid] 2 mg PO Q6HR PRN 11/24/19 12/01/19 11/30/19 14:00 History Active Meds: Active Medications Acetaminophen (Tylenol) 650 mg PO Q4H PRN PRN Reason: Pain MILD(1-3)/Fever >100.5/[place] Celecoxib (Celebrex) 200 mg PO PREOP NR Stop: 12/01/19 23:59 Last Admin: 12/01/19 06:40 Dose: 200 mg Documented by: Gabapentin (Gabapentin) 600 mg PO PREOP NR Stop: 12/01/19 23:59 Last Admin: 12/01/19 06:40 Dose: 600 mg Documented by: Cefazolin Sodium (Ancef/Sterile Water 2 Gm/20 Ml) 2 gm in 20 mls @ 80 mls/hr IV PREOP NR; Protocol Stop: 12/01/19 23:59 Sodium Chloride (Nacl 0.9% 500 Ml) 500 mls @ 0 mls/hr IV ONCE NR Stop: 12/01/19 23:59 Lactated Ringer's (Lactated Ringers) 1,000 mls @ 100 mls/hr IV DIRECT DIANNA Last Admin: 12/01/19 07:10 Dose: 100 mls/hr Documented by: Sodium Chloride (Nacl 0.45% 1000 Ml) 1,000 mls @ 125 mls/hr IV DIRECT DIANNA Metoprolol Succinate (Metoprolol Xl) 25 mg PO QDAY DIANNA Midazolam HCl (Versed) 2 mg IV PREOP NR Stop: 12/01/19 23:59 Last Admin: 12/01/19 07:30 Dose: 2 mg Documented by: Miscellaneous Medication (Chlorthalidone) 25 mg PO DAILY DIANNA Miscellaneous Medication (Simvastatin [Simvastatin]) 40 mg PO DAILY DIANNA Morphine Sulfate (Morphine) 4 mg IV Q4H PRN PRN Reason: Pain , Severe (7-10) Naloxone HCl (Naloxone) 0.1 mg IV Q2MIN PRN PRN Reason: Res Rate </= 8 or 02 SAT < 92% Ondansetron HCl (Zofran) 4 mg IV Q8H PRN PRN Reason: Nausea And Vomiting Oxycodone/Acetaminophen (Percocet 5/325) 1 tab PO Q6H PRN PRN Reason: Pain, Moderate (4-6) Propafenone HCl (Rythmol) 150 mg PO DAILY DIANNA Sodium Chloride (Sodium Chloride Flush Syringe 10 Ml) 10 ml IV BID DIANNA Sodium Chloride (Sodium Chloride Flush Syringe 10 Ml) 10 ml IV PRN PRN PRN Reason: LINE FLUSH Review of Systems All systems: negative Exam - Constitutional Vitals: Temp Pulse Resp BP Pulse Ox 97.8 F 61 12 117/62 100 12/01/19 14:45 12/01/19 14:45 12/01/19 14:45 12/01/19 14:45 12/01/19 14:45 General appearance: Present: no acute distress, well-nourished - EENT Eyes: Present: PERRL ENT: hearing intact, clear oral mucosa - Neck Neck: Present: supple, normal ROM - Respiratory Respiratory effort: normal Respiratory: bilateral: CTA - Cardiovascular Heart Sounds: Present: S1 & S2. Absent: rub, click - Extremities Extremities: pulses symmetrical, No edema Peripheral Pulses: within normal limits - Abdominal General gastrointestinal: Present: soft, non-tender, non-distended, normal bowel sounds Male genitourinary: Present: normal - Integumentary Integumentary: Present: clear, warm, dry - Musculoskeletal Musculoskeletal: gait normal, strength equal bilaterally - Psychiatric Psychiatric: appropriate mood/affect, intact judgment & insight - Neurologic Neurologic: CNII-XII intact, moves all extremities Results - Labs CBC & Chem 7: 12/01/19 13:08 12/01/19 13:08 Labs: Abnormal lab results 12/01/19 12/01/19 12/01/19 Range/Units 07:00 13:08 13:08 WBC 13.9 H (4.5-11.0) K/mm3 RBC 3.07 L (3.65-5.03) M/mm3 Hgb 9.7 L (11.8-15.2) gm/dl Hct 28.9 L (35.5-45.6) % Seg Neuts % (Manual) 88.0 H (40.0-70.0) % Lymphocytes % (Manual) 7.0 L (13.4-35.0) % Seg Neutrophils # Man 12.2 H (1.8-7.7) K/mm3 Lymphocytes # (Manual) 1.0 L (1.2-5.4) K/mm3 Sodium 133 L (137-145) mmol/L Chloride 97.1 L (98-107) mmol/L Creatinine 1.7 H (0.8-1.5) mg/dL Glucose 186 H (75-100) mg/dL Crossmatch See Detail Assessment and Plan Left hydronephrosis/s/p left nephrectomy. Continue per urology. Follow-up CBC and BMP. Pain control. Atrial fibrillation. Continue metoprolol and Rythmol. Consider cardiology consultation. Continue telemetry monitoring. Rate is currently controlled. Inquire about anticoagulation. Hypertension. Continue antihypertensive medications. Hyperlipidemia. Continue simvastatin.
[2019-12-01] MEDS: MORPHINE 4 MG/1 ML INJ IV PRN ×2 (16:28→20:43)
[2019-12-02] MEDS: MORPHINE 4 MG/1 ML INJ IV PRN ×2 (03:31→12:20)
[2019-12-02 04:58] LABS: Basophils % (Auto) 0.1 % (0.0-1.8); Hematocrit 34.9 % (35.5-45.6); Hemoglobin 11.5 gm/dl (11.8-15.2); Lymphocytes # (Auto) 1.3 K/mm3 (1.2-5.4); Lymphocytes % (Auto) 6.6 % (13.4-35.0); Mean Corpuscular HGB Conc 33 % (32-34); Mean Corpuscular Volume 94 fl (84-94); Monocytes # (Auto) 1.4 K/mm3 (0.0-0.8); Monocytes % (Auto) 7.1 % (0.0-7.3); Platelet Count 444 K/mm3 (140-440); Red Blood Count 3.71 M/mm3 (3.65-5.03); Red Cell Distribution Width 13.1 % (13.2-15.2)
[2019-12-02] MEDS: SODIUM CHLORIDE 0.45% 1000 ML 1,000 ML IV SCH ×2 (06:07→13:47)
[2019-12-02] MEDS ORDERED: ALUM-MAG HYDROXIDE-SIMETHICONE 200-200-20MG/5ML ORAL LIQD 30 ML PO PRN (06:30)
--- NOTE | 2019-12-02 09:13 | Consultation ---
History of Present Illness - Reason for Consult Consult date: 12/02/19 Post-op management Requesting physician: JOCY JONES - History of Present Illness This is a 49-year-old male with past medical history of hypertension, atrial fibrillation and hypercholesterolemia who presents with significant recent history of left hydronephrosis, renal stone, UTI and a nonfunctioning kidney on the left. Patient reported has a long history of kidney stones with percutaneo us nephrostomy tube. Nuclear scan revealed 6% functioning left kidney which prompted patient to undergo left nephrectomy with removal of the percutaneous tube. Urology performed the surgery yesterday and was admitted postoperatively to the ICU. Overnight, no issues. Stable BP. Past History Past Medical History: atrial fib, hypertension, hyperlipidemia Past Surgical History: Other (ESWL, cysto, perc tube) Social history: single Family history: other (kidney stones) Medications and Allergies Allergies Allergy/AdvReac Type Severity Reaction Status Date / Time shellfish derived AdvReac Swelling Verified 01/20/16 12:53 Home Medications Medication Instructions Recorded Confirmed Last Taken Type Propafenone [Rythmol] 150 mg PO DAILY 01/06/15 12/01/19 12/01/19 03:30 History Simvastatin 40 mg PO DAILY 01/06/15 12/01/19 11/30/19 20:00 History Metoprolol Xl [Metoprolol 25 mg PO QDAY #30 tablet 02/10/16 12/01/19 12/01/19 03:30 Rx SUCCINATE ER TAB] Chlorthalidone 25 mg PO DAILY 09/09/19 12/01/19 11/30/19 09:00 History HYDROcodone/APAP 5-325 [[place] 1 each PO Q6HR PRN 11/24/19 11/24/19 Unknown History 5/325] HYDROmorphone [Dilaudid] 2 mg PO Q6HR PRN 11/24/19 12/01/19 11/30/19 14:00 History Active Meds: Active Medications Acetaminophen (Tylenol) 650 mg PO Q4H PRN PRN Reason: Pain MILD(1-3)/Fever >100.5/[place] Al Hydrox/Mg Hydrox/Simethicone (Alum-Mag Hydrox-Simeth 152-157-18cx/5ml) 15 ml PO Q4H PRN PRN Reason: Indigestion Chlorthalidone (Thalitone) 25 mg PO QDAY [facility] Famotidine (Pepcid) 10 mg IV BID [facility] Sodium Chloride (Nacl 0.45% 1000 Ml) 1,000 mls @ 125 mls/hr IV DIRECT DIANNA Last Admin: 12/02/19 06:07 Dose: 125 mls/hr Documented by: Metoprolol Succinate (Metoprolol Xl) 25 mg PO QDAY [facility] Morphine Sulfate (Morphine) 4 mg IV Q4H PRN PRN Reason: Pain , Severe (7-10) Last Admin: 12/02/19 03:31 Dose: 4 mg Documented by: Naloxone HCl (Naloxone) 0.1 mg IV Q2MIN PRN PRN Reason: Res Rate </= 8 or 02 SAT < 92% Ondansetron HCl (Zofran) 4 mg IV Q8H PRN PRN Reason: Nausea And Vomiting Last Admin: 12/01/19 16:31 Dose: 4 mg Documented by: Oxycodone/Acetaminophen (Percocet 5/325) 1 tab PO Q6H PRN PRN Reason: Pain, Moderate (4-6) Pravastatin Sodium (Pravachol) 40 mg PO QDAY [facility] Propafenone HCl (Rythmol) 150 mg PO DAILY [facility] Sodium Chloride (Sodium Chloride Flush Syringe 10 Ml) 10 ml IV BID [facility] Last Admin: 12/01/19 22:00 Dose: 10 ml Documented by: Sodium Chloride (Sodium Chloride Flush Syringe 10 Ml) 10 ml IV PRN PRN PRN Reason: LINE FLUSH Review of Systems All systems: negative Exam - Constitutional Vitals: Temp Pulse Resp BP Pulse Ox 97.8 F 55 L 11 L 121/68 100 12/02/19 08:00 12/02/19 06:00 12/02/19 06:00 12/02/19 06:00 12/02/19 06:00 Results - Labs CBC & Chem 7: 12/02/19 04:24 12/01/19 13:08 Labs: Abnormal lab results 12/01/19 12/01/19 12/01/19 Range/Units 07:00 13:08 13:08 WBC 13.9 H (4.5-11.0) K/mm3 RBC 3.07 L (3.65-5.03) M/mm3 Hgb 9.7 L (11.8-15.2) gm/dl Hct 28.9 L (35.5-45.6) % RDW (13.2-15.2) % Plt Count (140-440) K/mm3 Lymph % (Auto) (13.4-35.0) % [place] # (0.0-0.8) K/mm3 Seg Neutrophils % (40.0-70.0) % Seg Neuts % (Manual) 88.0 H (40.0-70.0) % Lymphocytes % (Manual) 7.0 L (13.4-35.0) % Seg Neutrophils # (1.8-7.7) K/mm3 Seg Neutrophils # Man 12.2 H (1.8-7.7) K/mm3 Lymphocytes # (Manual) 1.0 L (1.2-5.4) K/mm3 Sodium 133 L (137-145) mmol/L Chloride 97.1 L (98-107) mmol/L Creatinine 1.7 H (0.8-1.5) mg/dL Glucose 186 H (75-100) mg/dL POC Glucose (70-105) Crossmatch See Detail 12/01/19 12/02/19 Range/Units 18:41 04:24 WBC 19.1 H (4.5-11.0) K/mm3 RBC (3.65-5.03) M/mm3 Hgb 11.5 L (11.8-15.2) gm/dl Hct 34.9 L D (35.5-45.6) % RDW 13.1 L (13.2-15.2) % Plt Count 444 H (140-440) K/mm3 Lymph % (Auto) 6.6 L (13.4-35.0) % [place] # 1.4 H (0.0-0.8) K/mm3 Seg Neutrophils % 86.2 H (40.0-70.0) % Seg Neuts % (Manual) (40.0-70.0) % Lymphocytes % (Manual) (13.4-35.0) % Seg Neutrophils # 16.5 H (1.8-7.7) K/mm3 Seg Neutrophils # Man (1.8-7.7) K/mm3 Lymphocytes # (Manual) (1.2-5.4) K/mm3 Sodium (137-145) mmol/L Chloride (98-107) mmol/L Creatinine (0.8-1.5) mg/dL Glucose (75-100) mg/dL POC Glucose 149 H (70-105) Crossmatch Assessment and Plan 49 y/o male s/p left nephrectomy. 1. Resume home BP and rate control meds 2. Pain control 3. Nutrition 4. OOB to chair and ambulate as tolerated 5. PT/OT 6. Await urology evaluation today, maybe stable enough for transfer but will discuss with them.
[2019-12-02] MEDS: PROPAFENONE 150 MG TAB PO SCH (09:37)
[2019-12-02] MEDS: METOPROLOL SUCCINATE XL 25 MG TAB PO SCH (09:37)
[2019-12-02] MEDS: FAMOTIDINE 20 MG/2 ML INJ IV SCH ×2 (09:38→21:39)
[2019-12-02] MEDS: PRAVASTATIN 40 MG TAB PO SCH (09:39)
[2019-12-02] MEDS: CHLORTHALIDONE 25 MG TAB PO SCH (10:00)
[2019-12-02] MEDS ORDERED: NON-FORMULARY EACH (Simvastatin [Simvastatin] 40 MG) PO SCH (10:00)
[2019-12-02] MEDS ORDERED: CHLORTHALIDONE 25 MG PO SCH (10:00)
--- NOTE | 2019-12-02 10:22 | Progress Note ---
Assessment and Plan Assessment and plan: Left hydronephrosis/s/p left nephrectomy. Continue per urology. Follow-up CBC and BMP. Pain control. Atrial fibrillation. Continue metoprolol and Rythmol. Rate is currently controlled. Hypertension. Continue antihypertensive medications. Cont Metoprolol Hyperlipidemia. Continue simvastatin. Likely transfer out of ICU today History Interval history: s/p left nephrectomy Mild pain at surgical site Hospitalist Physical - Physical exam Narrative exam: GEN: Not in acute distress, lying in bed,obese HEENT: Normocephalic, atraumatic, Neck: supple, No JVD Lungs: Clear to auscultation bilaterally, no wheeze, heart;S1 and S2 reg, no murmurs Abd:soft, mild tender left flank at surg site, dressing over left flank, surgical drain Ext: No edema, no clubbing, no cyanosis Neuro: AAO X 3, no focal neurological signs - Constitutional Vitals: Temp Pulse Resp BP Pulse Ox 97.8 F 67 11 L 116/56 100 12/02/19 08:00 12/02/19 09:37 12/02/19 06:00 12/02/19 09:37 12/02/19 06:00 General appearance: Present: no acute distress, well-nourished Results - Labs CBC & Chem 7: 12/03/19 07:46 12/03/19 07:46 Labs: Laboratory Last Values WBC 19.1 K/mm3 (4.5-11.0) H 12/02/19 04:24 RBC 3.71 M/mm3 (3.65-5.03) 12/02/19 04:24 Hgb 11.5 gm/dl (11.8-15.2) L 12/02/19 04:24 Hct 34.9 % (35.5-45.6) L D 12/02/19 04:24 MCV 94 fl (84-94) 12/02/19 04:24 MCH 31 pg (28-32) 12/02/19 04:24 MCHC 33 % (32-34) 12/02/19 04:24 RDW 13.1 % (13.2-15.2) L 12/02/19 04:24 Plt Count 444 K/mm3 (140-440) H 12/02/19 04:24 Lymph % (Auto) 6.6 % (13.4-35.0) L 12/02/19 04:24 [place] % (Auto) 7.1 % (0.0-7.3) 12/02/19 04:24 Eos % (Auto) 0.0 % (0.0-4.3) 12/02/19 04:24 Baso % (Auto) 0.1 % (0.0-1.8) 12/02/19 04:24 Lymph # 1.3 K/mm3 (1.2-5.4) 12/02/19 04:24 [place] # 1.4 K/mm3 (0.0-0.8) H 12/02/19 04:24 Eos # 0.0 K/mm3 (0.0-0.4) 12/02/19 04:24 Baso # 0.0 K/mm3 (0.0-0.1) 12/02/19 04:24 Add Manual Diff Complete 12/01/19 13:08 Total Counted 100 12/01/19 13:08 Seg Neutrophils % 86.2 % (40.0-70.0) H 12/02/19 04:24 Seg Neuts % (Manual) 88.0 % (40.0-70.0) H 12/01/19 13:08 Band Neutrophils % 0 % 12/01/19 13:08 Lymphocytes % (Manual) 7.0 % (13.4-35.0) L 12/01/19 13:08 Reactive Lymphs % (Man) 0 % 12/01/19 13:08 Monocytes % (Manual) 4.0 % (0.0-7.3) 12/01/19 13:08 Eosinophils % (Manual) 0 % (0.0-4.3) 12/01/19 13:08 Basophils % (Manual) 0 % (0.0-1.8) 12/01/19 13:08 Metamyelocytes % 1.0 % 12/01/19 13:08 Myelocytes % 0 % 12/01/19 13:08 Promyelocytes % 0 % 12/01/19 13:08 Blast Cells % 0 % 12/01/19 13:08 Nucleated RBC % Not Reportable 12/01/19 13:08 Seg Neutrophils # 16.5 K/mm3 (1.8-7.7) H 12/02/19 04:24 Seg Neutrophils # Man 12.2 K/mm3 (1.8-7.7) H 12/01/19 13:08 Band Neutrophils # 0.0 K/mm3 12/01/19 13:08 Lymphocytes # (Manual) 1.0 K/mm3 (1.2-5.4) L 12/01/19 13:08 Abs React Lymphs (Man) 0.0 K/mm3 12/01/19 13:08 Monocytes # (Manual) 0.6 K/mm3 (0.0-0.8) 12/01/19 13:08 Eosinophils # (Manual) 0.0 K/mm3 (0.0-0.4) 12/01/19 13:08 Basophils # (Manual) 0.0 K/mm3 (0.0-0.1) 12/01/19 13:08 Metamyelocytes # 0.1 K/mm3 12/01/19 13:08 Myelocytes # 0.0 K/mm3 12/01/19 13:08 Promyelocytes # 0.0 K/mm3 12/01/19 13:08 Blast Cells # 0.0 K/mm3 12/01/19 13:08 WBC Morphology Not Reportable 12/01/19 13:08 Hypersegmented Neuts Not Reportable 12/01/19 13:08 Hyposegmented Neuts Not Reportable 12/01/19 13:08 Hypogranular Neuts Not Reportable 12/01/19 13:08 Smudge Cells Not Reportable 12/01/19 13:08 Toxic Granulation Not Reportable 12/01/19 13:08 Toxic Vacuolation Not Reportable 12/01/19 13:08 Dohle Bodies Not Reportable 12/01/19 13:08 Pelger-Huet Anomaly Not Reportable 12/01/19 13:08 Dara Rods Not Reportable 12/01/19 13:08 Platelet Estimate Consistent w auto 12/01/19 13:08 Clumped Platelets Not Reportable 12/01/19 13:08 Plt Clumps, EDTA Not Reportable 12/01/19 13:08 Large Platelets Not Reportable 12/01/19 13:08 Giant Platelets Not Reportable 12/01/19 13:08 Platelet Satelliting Not Reportable 12/01/19 13:08 Plt Morphology Comment Not Reportable 12/01/19 13:08 RBC Morphology Normal 12/01/19 13:08 Dimorphic RBCs Not Reportable 12/01/19 13:08 Polychromasia Not Reportable 12/01/19 13:08 Hypochromasia Not Reportable 12/01/19 13:08 Poikilocytosis Not Reportable 12/01/19 13:08 Anisocytosis Not Reportable 12/01/19 13:08 Microcytosis Not Reportable 12/01/19 13:08 Macrocytosis Not Reportable 12/01/19 13:08 Spherocytes Not Reportable 12/01/19 13:08 Pappenheimer Bodies Not Reportable 12/01/19 13:08 Sickle Cells Not Reportable 12/01/19 13:08 Target Cells Not Reportable 12/01/19 13:08 Tear Drop Cells Not Reportable 12/01/19 13:08 Ovalocytes Not Reportable 12/01/19 13:08 Helmet Cells Not Reportable 12/01/19 13:08 [place] Bodies Not Reportable 12/01/19 13:08 Acme Rings Not Reportable 12/01/19 13:08 Nathaly Cells Not Reportable 12/01/19 13:08 Bite Cells Not Reportable 12/01/19 13:08 Crenated Cell Not Reportable 12/01/19 13:08 Elliptocytes Not Reportable 12/01/19 13:08 Acanthocytes (Spur) Not Reportable 12/01/19 13:08 Rouleaux Not Reportable 12/01/19 13:08 Hemoglobin C Crystals Not Reportable 12/01/19 13:08 Schistocytes Not Reportable 12/01/19 13:08 Malaria parasites Not Reportable 12/01/19 13:08 Samir Bodies Not Reportable 12/01/19 13:08 Hem Pathologist Commnt No 12/01/19 13:08 PT 12.6 Sec. (12.2-14.9) 11/27/19 10:25 INR 0.93 (0.87-1.13) 11/27/19 10:25 APTT 21.5 Sec. (24.2-36.6) L 11/27/19 10:25 Sodium 133 mmol/L (137-145) L 12/01/19 13:08 Potassium 3.9 mmol/L (3.6-5.0) 12/01/19 13:08 Chloride 97.1 mmol/L (98-107) L 12/01/19 13:08 Carbon Dioxide 22 mmol/L (22-30) 12/01/19 13:08 Anion Gap 18 mmol/L 12/01/19 13:08 BUN 19 mg/dL (9-20) 12/01/19 13:08 Creatinine 1.7 mg/dL (0.8-1.5) H 12/01/19 13:08 Estimated GFR 52 ml/min 12/01/19 13:08 BUN/Creatinine Ratio 11 % 12/01/19 13:08 Glucose 186 mg/dL (75-100) H 12/01/19 13:08 POC Glucose 149 (70-105) H 12/01/19 18:41 Calcium 8.8 mg/dL (8.4-10.2) 12/01/19 13:08 Total Bilirubin 0.40 mg/dL (0.1-1.2) 11/27/19 10:25 AST 16 units/L (5-40) 11/27/19 10:25 ALT 13 units/L (7-56) 11/27/19 10:25 Alkaline Phosphatase 94 units/L (35-129) 11/27/19 10:25 Total Protein 8.2 g/dL (6.3-8.2) 11/27/19 10:25 Albumin 3.9 g/dL (3.9-5) 11/27/19 10:25 Albumin/Globulin Ratio 0.9 % 11/27/19 10:25 Blood Type O POSITIVE 12/01/19 07:00 Antibody Screen Negative 12/01/19 07:00 Crossmatch See Detail 12/01/19 07:00 Active Medications - Current Medications Current Medications: Generic Name Dose Route Start Last Admin Trade Name Freq PRN Reason Stop Dose Admin Acetaminophen 650 mg 12/01/19 10:51 Tylenol PO Q4H PRN Pain MILD(1-3)/Fever >100.5/[place] Al Hydrox/Mg Hydrox/Simethicone 15 ml 12/02/19 06:30 12/02/19 09:40 Alum-Mag Hydrox-Simeth 356-016-00qm/5ml PO 15 ml Q4H PRN Administration Indigestion Chlorthalidone 25 mg 12/02/19 10:00 Thalitone PO QDAY DIANNA Famotidine 10 mg 12/02/19 10:00 12/02/19 09:38 Pepcid IV 10 mg BID DIANNA Administration Sodium Chloride 1,000 mls @ 125 mls/hr 12/01/19 11:00 12/02/19 06:07 Nacl 0.45% 1000 Ml IV 125 mls/hr DIRECT DIANNA Administration Metoprolol Succinate 25 mg 12/02/19 10:00 12/02/19 09:37 Metoprolol Xl PO 25 mg QDAY DIANNA Administration Morphine Sulfate 4 mg 12/01/19 10:51 12/02/19 03:31 Morphine IV 4 mg Q4H PRN Administration Pain , Severe (7-10) Naloxone HCl 0.1 mg 12/01/19 10:51 Naloxone IV Q2MIN PRN Res Rate </= 8 or 02 SAT < 92% Ondansetron HCl 4 mg 12/01/19 10:51 12/01/19 16:31 Zofran IV 4 mg Q8H PRN Administration Nausea And Vomiting Oxycodone/Acetaminophen 1 tab 12/01/19 10:51 Percocet 5/325 PO Q6H PRN Pain, Moderate (4-6) Pravastatin Sodium 40 mg 12/02/19 10:00 12/02/19 09:39 Pravachol PO 40 mg QDAY DIANNA Administration Propafenone HCl 150 mg 12/02/19 10:00 12/02/19 09:37 Rythmol PO 150 mg DAILY DIANNA Administration Sodium Chloride 10 ml 12/01/19 22:00 12/02/19 09:39 Sodium Chloride Flush Syringe 10 Ml IV 10 ml BID DIANNA Administration Sodium Chloride 10 ml 12/01/19 10:51 Sodium Chloride Flush Syringe 10 Ml IV PRN PRN LINE FLUSH
--- NOTE | 2019-12-02 12:37 | Progress Note ---
Assessment and Plan - Patient Problems (1) Hydronephrosis Current Visit: Yes Status: Acute (2) Calculus of left kidney Current Visit: No Status: Acute Subjective Date of service: 12/02/19 Interval history: left nephrectomy, removed perc tube---12-01-19---ROBERT Family at bedside stable with clear liquids abd soft hanna clear urine A/P nephrectomy HTN afib advance diet up in chair transfer to remote tele---3 surgical only Objective - Constitutional Vitals: Vital Signs - 12hr 12/02/19 12/02/19 12/02/19 01:00 02:00 03:01 Temperature Pulse Rate 62 59 L 59 L Respiratory 10 L 13 10 L Rate Blood Pressure 152/74 137/58 123/54 O2 Sat by Pulse 100 100 99 Oximetry 12/02/19 12/02/19 12/02/19 03:34 04:00 04:01 Temperature 98.8 F Pulse Rate 53 L 55 L Respiratory 13 Rate Blood Pressure 161/72 O2 Sat by Pulse 100 Oximetry 12/02/19 12/02/19 12/02/19 05:00 06:00 08:00 Temperature 97.8 F Pulse Rate 59 L 55 L Respiratory 16 11 L Rate Blood Pressure 133/69 121/68 O2 Sat by Pulse 100 100 Oximetry 12/02/19 09:37 Temperature Pulse Rate 67 Respiratory Rate Blood Pressure 116/56 O2 Sat by Pulse Oximetry - Labs CBC & Chem 7: 12/02/19 04:24 12/01/19 13:08 Labs: Abnormal lab results 12/01/19 12/01/19 12/01/19 Range/Units 13:08 13:08 18:41 WBC 13.9 H (4.5-11.0) K/mm3 RBC 3.07 L (3.65-5.03) M/mm3 Hgb 9.7 L (11.8-15.2) gm/dl Hct 28.9 L (35.5-45.6) % RDW (13.2-15.2) % Plt Count (140-440) K/mm3 Lymph % (Auto) (13.4-35.0) % [place] # (0.0-0.8) K/mm3 Seg Neutrophils % (40.0-70.0) % Seg Neuts % (Manual) 88.0 H (40.0-70.0) % Lymphocytes % (Manual) 7.0 L (13.4-35.0) % Seg Neutrophils # (1.8-7.7) K/mm3 Seg Neutrophils # Man 12.2 H (1.8-7.7) K/mm3 Lymphocytes # (Manual) 1.0 L (1.2-5.4) K/mm3 Sodium 133 L (137-145) mmol/L Chloride 97.1 L (98-107) mmol/L Creatinine 1.7 H (0.8-1.5) mg/dL Glucose 186 H (75-100) mg/dL POC Glucose 149 H (70-105) 12/02/19 Range/Units 04:24 WBC 19.1 H (4.5-11.0) K/mm3 RBC (3.65-5.03) M/mm3 Hgb 11.5 L (11.8-15.2) gm/dl Hct 34.9 L D (35.5-45.6) % RDW 13.1 L (13.2-15.2) % Plt Count 444 H (140-440) K/mm3 Lymph % (Auto) 6.6 L (13.4-35.0) % [place] # 1.4 H (0.0-0.8) K/mm3 Seg Neutrophils % 86.2 H (40.0-70.0) % Seg Neuts % (Manual) (40.0-70.0) % Lymphocytes % (Manual) (13.4-35.0) % Seg Neutrophils # 16.5 H (1.8-7.7) K/mm3 Seg Neutrophils # Man (1.8-7.7) K/mm3 Lymphocytes # (Manual) (1.2-5.4) K/mm3 Sodium (137-145) mmol/L Chloride (98-107) mmol/L Creatinine (0.8-1.5) mg/dL Glucose (75-100) mg/dL POC Glucose (70-105) Medications & Allergies - Medications Allergies/Adverse Reactions: Allergies shellfish derived Adverse Reaction (Verified 01/20/16 12:53) Swelling Home Medications: Home Medications Medication Instructions Recorded Confirmed Last Taken Type Propafenone [Rythmol] 150 mg PO DAILY 01/06/15 12/01/19 12/01/19 03:30 History Simvastatin 40 mg PO DAILY 01/06/15 12/01/19 11/30/19 20:00 History Metoprolol Xl [Metoprolol 25 mg PO QDAY #30 tablet 02/10/16 12/01/19 12/01/19 03:30 Rx SUCCINATE ER TAB] Chlorthalidone 25 mg PO DAILY 09/09/19 12/01/19 11/30/19 09:00 History HYDROcodone/APAP 5-325 [[place] 1 each PO Q6HR PRN 11/24/19 11/24/19 Unknown History 5/325] HYDROmorphone [Dilaudid] 2 mg PO Q6HR PRN 11/24/19 12/01/19 11/30/19 14:00 History Active Medications: Generic Name Dose Route Start Last Admin Trade Name Freq PRN Reason Stop Dose Admin Acetaminophen 650 mg 12/01/19 10:51 Tylenol PO Q4H PRN Pain MILD(1-3)/Fever >100.5/[place] Al Hydrox/Mg Hydrox/Simethicone 15 ml 12/02/19 06:30 12/02/19 09:40 Alum-Mag Hydrox-Simeth 631-957-26an/5ml PO 15 ml Q4H PRN Administration Indigestion Chlorthalidone 25 mg 12/02/19 10:00 12/02/19 10:00 Thalitone PO 25 mg QDAY DIANNA Administration Famotidine 10 mg 12/02/19 10:00 12/02/19 09:38 Pepcid IV 10 mg BID DIANNA Administration Sodium Chloride 1,000 mls @ 125 mls/hr 12/01/19 11:00 12/02/19 06:07 Nacl 0.45% 1000 Ml IV 125 mls/hr DIRECT DIANNA Administration Metoprolol Succinate 25 mg 12/02/19 10:00 12/02/19 09:37 Metoprolol Xl PO 25 mg QDAY DIANNA Administration Morphine Sulfate 4 mg 12/01/19 10:51 12/02/19 12:20 Morphine IV 4 mg Q4H PRN Administration Pain , Severe (7-10) Naloxone HCl 0.1 mg 12/01/19 10:51 Naloxone IV Q2MIN PRN Res Rate </= 8 or 02 SAT < 92% Ondansetron HCl 4 mg 12/01/19 10:51 12/01/19 16:31 Zofran IV 4 mg Q8H PRN Administration Nausea And Vomiting Oxycodone/Acetaminophen 1 tab 12/01/19 10:51 Percocet 5/325 PO Q6H PRN Pain, Moderate (4-6) Pravastatin Sodium 40 mg 12/02/19 10:00 12/02/19 09:39 Pravachol PO 40 mg QDAY DIANNA Administration Propafenone HCl 150 mg 12/02/19 10:00 12/02/19 09:37 Rythmol PO 150 mg DAILY DIANNA Administration Sodium Chloride 10 ml 12/01/19 22:00 12/02/19 09:39 Sodium Chloride Flush Syringe 10 Ml IV 10 ml BID DIANNA Administration Sodium Chloride 10 ml 12/01/19 10:51 Sodium Chloride Flush Syringe 10 Ml IV PRN PRN LINE FLUSH
[2019-12-02] MEDS: ceFAZolin/NS 1 GM/50 ML 1 GM/50 ML BAG IV SCH ×2 (15:00→21:39)
[2019-12-02] MEDS: oxyCODONE /ACETAMINOPHEN 5-325MG TAB PO PRN ×2 (18:18→23:15)
[2019-12-03] MEDS: MORPHINE 4 MG/1 ML INJ IV PRN ×3 (00:19→18:31)
[2019-12-03] MEDS: oxyCODONE /ACETAMINOPHEN 5-325MG TAB PO PRN ×3 (04:41→21:49)
[2019-12-03] MEDS: ceFAZolin/NS 1 GM/50 ML 1 GM/50 ML BAG IV SCH ×3 (05:25→21:45)
[2019-12-03 08:14] LABS: Hematocrit 28.8 % (35.5-45.6); Hemoglobin 9.5 gm/dl (11.8-15.2); Mean Corpuscular HGB Conc 33 % (32-34); Mean Corpuscular Volume 93 fl (84-94); Platelet Count 384 K/mm3 (140-440); Red Blood Count 3.09 M/mm3 (3.65-5.03); Red Cell Distribution Width 13.3 % (13.2-15.2)
[2019-12-03 08:26] LABS: BUN/Creatinine Ratio 11; Blood Urea Nitrogen 14 mg/dL (9-20); Calcium 9.1 mg/dL (8.4-10.2); Hemolysis Index 0
[2019-12-03] MEDS: FAMOTIDINE 20 MG/2 ML INJ IV SCH ×2 (10:23→21:45)
[2019-12-03] MEDS: PROPAFENONE 150 MG TAB PO SCH (10:27)
[2019-12-03] MEDS: PRAVASTATIN 40 MG TAB PO SCH (10:51)
[2019-12-03] MEDS: METOPROLOL SUCCINATE XL 25 MG TAB PO SCH (10:53)
[2019-12-03] MEDS: CHLORTHALIDONE 25 MG TAB PO SCH (10:55)
--- NOTE | 2019-12-03 13:20 | Progress Note ---
Assessment and Plan 49 y/o male s/p left nephrectomy. 1. stable pulm status 2. Will sign off, call if questions. Subjective Date of service: 12/03/19 Interval history: No acute events. Successful transfer out of the unit. Stable pulm status. Objective - Constitutional Vitals: Vital Signs - 12hr 12/03/19 12/03/19 12/03/19 04:00 04:09 06:52 Temperature 98.0 F Pulse Rate 78 79 88 Respiratory 17 Rate Blood Pressure 117/41 O2 Sat by Pulse 97 Oximetry 12/03/19 12/03/19 12/03/19 07:38 10:53 11:49 Temperature 98.1 F 98.2 F Pulse Rate 83 76 85 Respiratory 18 20 Rate Blood Pressure 104/40 103/49 107/49 O2 Sat by Pulse 96 97 Oximetry - Labs CBC & Chem 7: 12/03/19 07:46 12/03/19 07:46 Labs: Abnormal lab results 12/03/19 12/03/19 Range/Units 07:46 07:46 WBC 12.0 H (4.5-11.0) K/mm3 RBC 3.09 L (3.65-5.03) M/mm3 Hgb 9.5 L (11.8-15.2) gm/dl Hct 28.8 L D (35.5-45.6) % Sodium 134 L (137-145) mmol/L Chloride 96.3 L (98-107) mmol/L Glucose 113 H (75-100) mg/dL Medications & Allergies - Medications Allergies/Adverse Reactions: Allergies shellfish derived Adverse Reaction (Verified 01/20/16 12:53) Swelling Home Medications: Home Medications Medication Instructions Recorded Confirmed Last Taken Type Propafenone [Rythmol] 150 mg PO DAILY 01/06/15 12/01/19 12/01/19 03:30 History Simvastatin 40 mg PO DAILY 01/06/15 12/01/19 11/30/19 20:00 History Metoprolol Xl [Metoprolol 25 mg PO QDAY #30 tablet 02/10/16 12/01/19 12/01/19 03:30 Rx SUCCINATE ER TAB] Chlorthalidone 25 mg PO DAILY 09/09/19 12/01/19 11/30/19 09:00 History HYDROcodone/APAP 5-325 [[place] 1 each PO Q6HR PRN 11/24/19 11/24/19 Unknown History 5/325] HYDROmorphone [Dilaudid] 2 mg PO Q6HR PRN 11/24/19 12/01/19 11/30/19 14:00 History Active Medications: Generic Name Dose Route Start Last Admin Trade Name Freq PRN Reason Stop Dose Admin Acetaminophen 650 mg 12/01/19 10:51 Tylenol PO Q4H PRN Pain MILD(1-3)/Fever >100.5/[place] Al Hydrox/Mg Hydrox/Simethicone 15 ml 12/02/19 06:30 12/02/19 09:40 Alum-Mag Hydrox-Simeth 968-200-44yb/5ml PO 15 ml Q4H PRN Administration Indigestion Chlorthalidone 25 mg 12/02/19 10:00 12/03/19 10:55 Thalitone PO Not Given QDAY DIANNA Famotidine 10 mg 12/02/19 10:00 12/03/19 10:23 Pepcid IV 10 mg BID DIANNA Administration Cefazolin Sodium 1 gm in 50 mls @ 100 mls/hr 12/02/19 14:00 12/03/19 05:25 Ancef/Ns 1 Gm/50 Ml IV 100 mls/hr Q8HR DIANNA Administration Protocol Metoprolol Succinate 25 mg 12/02/19 10:00 12/03/19 10:53 Metoprolol Xl PO Not Given QDAY DIANNA Morphine Sulfate 4 mg 12/01/19 10:51 12/03/19 00:19 Morphine IV 4 mg Q4H PRN Administration Pain , Severe (7-10) Naloxone HCl 0.1 mg 12/01/19 10:51 Naloxone IV Q2MIN PRN Res Rate </= 8 or 02 SAT < 92% Ondansetron HCl 4 mg 12/01/19 10:51 12/01/19 16:31 Zofran IV 4 mg Q8H PRN Administration Nausea And Vomiting Oxycodone/Acetaminophen 1 tab 12/01/19 10:51 12/03/19 10:28 Percocet 5/325 PO 1 tab Q6H PRN Administration Pain, Moderate (4-6) Pravastatin Sodium 40 mg 12/02/19 10:00 12/03/19 10:51 Pravachol PO 40 mg QDAY DIANNA Administration Propafenone HCl 150 mg 12/02/19 10:00 12/03/19 10:27 Rythmol PO 150 mg DAILY DIANNA Administration Sodium Chloride 10 ml 12/01/19 22:00 12/03/19 10:56 Sodium Chloride Flush Syringe 10 Ml IV 10 ml BID DIANNA Administration Sodium Chloride 10 ml 12/01/19 10:51 Sodium Chloride Flush Syringe 10 Ml IV PRN PRN LINE FLUSH
[2019-12-03] MEDS ORDERED: POLYETHYLENE GLYCOL 3350 17 GM POWDER PO PRN (15:45)
--- NOTE | 2019-12-03 16:48 | Progress Note ---
Assessment and Plan - Patient Problems (1) Hydronephrosis Current Visit: Yes Status: Acute (2) Calculus of left kidney Current Visit: No Status: Acute Subjective Date of service: 12/03/19 Interval history: left nephrectomy, removed perc tube---12-01-19---ROBERT Family at bedside stable with full liquids---no bm yet abd soft hanna clear urine A/P nephrectomy HTN afib advance diet ambulte dc drain---done dc hanna in am Objective - Constitutional Vitals: Vital Signs - 12hr 12/03/19 12/03/19 12/03/19 06:52 07:38 10:53 Temperature 98.1 F Pulse Rate 88 83 76 Respiratory 18 Rate Blood Pressure 104/40 103/49 O2 Sat by Pulse 96 Oximetry 12/03/19 12/03/19 11:49 15:43 Temperature 98.2 F 98.4 F Pulse Rate 85 84 Respiratory 20 20 Rate Blood Pressure 107/49 102/56 O2 Sat by Pulse 97 99 Oximetry - Labs CBC & Chem 7: 12/03/19 07:46 12/03/19 07:46 Labs: Abnormal lab results 12/03/19 12/03/19 Range/Units 07:46 07:46 WBC 12.0 H (4.5-11.0) K/mm3 RBC 3.09 L (3.65-5.03) M/mm3 Hgb 9.5 L (11.8-15.2) gm/dl Hct 28.8 L D (35.5-45.6) % Sodium 134 L (137-145) mmol/L Chloride 96.3 L (98-107) mmol/L Glucose 113 H (75-100) mg/dL Medications & Allergies - Medications Allergies/Adverse Reactions: Allergies shellfish derived Adverse Reaction (Verified 01/20/16 12:53) Swelling Home Medications: Home Medications Medication Instructions Recorded Confirmed Last Taken Type Propafenone [Rythmol] 150 mg PO DAILY 01/06/15 12/01/19 12/01/19 03:30 History Simvastatin 40 mg PO DAILY 01/06/15 12/01/19 11/30/19 20:00 History Metoprolol Xl [Metoprolol 25 mg PO QDAY #30 tablet 02/10/16 12/01/19 12/01/19 03:30 Rx SUCCINATE ER TAB] Chlorthalidone 25 mg PO DAILY 09/09/19 12/01/19 11/30/19 09:00 History HYDROcodone/APAP 5-325 [[place] 1 each PO Q6HR PRN 11/24/19 11/24/19 Unknown History 5/325] HYDROmorphone [Dilaudid] 2 mg PO Q6HR PRN 11/24/19 12/01/19 11/30/19 14:00 History Active Medications: Generic Name Dose Route Start Last Admin Trade Name Freq PRN Reason Stop Dose Admin Acetaminophen 650 mg 12/01/19 10:51 Tylenol PO Q4H PRN Pain MILD(1-3)/Fever >100.5/[place] Al Hydrox/Mg Hydrox/Simethicone 15 ml 12/02/19 06:30 12/02/19 09:40 Alum-Mag Hydrox-Simeth 851-477-18ne/5ml PO 15 ml Q4H PRN Administration Indigestion Chlorthalidone 25 mg 12/02/19 10:00 12/03/19 10:55 Thalitone PO Not Given QDAY [facility] Famotidine 10 mg 12/02/19 10:00 12/03/19 10:23 Pepcid IV 10 mg BID DIANNA Administration Cefazolin Sodium 1 gm in 50 mls @ 100 mls/hr 12/02/19 14:00 12/03/19 13:52 Ancef/Ns 1 Gm/50 Ml IV 100 mls/hr Q8HR DIANNA Administration Protocol Metoprolol Succinate 25 mg 12/02/19 10:00 12/03/19 10:53 Metoprolol Xl PO Not Given QDAY [facility] Morphine Sulfate 4 mg 12/01/19 10:51 12/03/19 13:50 Morphine IV 4 mg Q4H PRN Administration Pain , Severe (7-10) Naloxone HCl 0.1 mg 12/01/19 10:51 Naloxone IV Q2MIN PRN Res Rate </= 8 or 02 SAT < 92% Ondansetron HCl 4 mg 12/01/19 10:51 12/01/19 16:31 Zofran IV 4 mg Q8H PRN Administration Nausea And Vomiting Oxycodone/Acetaminophen 1 tab 12/01/19 10:51 12/03/19 10:28 Percocet 5/325 PO 1 tab Q6H PRN Administration Pain, Moderate (4-6) Polyethylene Glycol 17 gm 12/03/19 15:45 Miralax 3350 PO QDAY PRN Constipation Pravastatin Sodium 40 mg 12/02/19 10:00 12/03/19 10:51 Pravachol PO 40 mg QDAY DIANNA Administration Propafenone HCl 150 mg 12/02/19 10:00 12/03/19 10:27 Rythmol PO 150 mg DAILY DIANNA Administration Sodium Chloride 10 ml 12/01/19 22:00 12/03/19 10:56 Sodium Chloride Flush Syringe 10 Ml IV 10 ml BID DIANNA Administration Sodium Chloride 10 ml 12/01/19 10:51 Sodium Chloride Flush Syringe 10 Ml IV PRN PRN LINE FLUSH
--- NOTE | 2019-12-03 16:48 | Progress Note ---
Assessment and Plan Assessment and plan: Left hydronephrosis/s/p left nephrectomy. Continue per urology. Follow-up CBC and BMP. Pain control. Atrial fibrillation. Continue metoprolol and Rythmol. Rate is currently controlled. Anemia, drop in hemoglobin 2 Units PRBC Hypertension. Continue antihypertensive medications. Cont Metoprolol Hyperlipidemia. Continue simvastatin. Constipation Miralax prn. History Interval history: s/p left nephrectomy Mild pain at surgical site constipation Hospitalist Physical - Physical exam Narrative exam: GEN: Not in acute distress, lying in bed,obese HEENT: Normocephalic, atraumatic, Neck: supple, No JVD Lungs: Clear to auscultation bilaterally, no wheeze, heart;S1 and S2 reg, no murmurs Abd:soft, mild tender left flank at surg site, dressing over left flank, surgical drain Ext: No edema, no clubbing, no cyanosis Neuro: AAO X 3, no focal neurological signs - Constitutional Vitals: Temp Pulse Resp BP Pulse Ox 98.4 F 84 20 102/56 99 12/03/19 15:43 12/03/19 15:43 12/03/19 15:43 12/03/19 15:43 12/03/19 15:43 General appearance: Present: no acute distress, obese Results - Labs CBC & Chem 7: 12/03/19 07:46 12/03/19 07:46 Labs: Laboratory Last Values WBC 12.0 K/mm3 (4.5-11.0) H 12/03/19 07:46 RBC 3.09 M/mm3 (3.65-5.03) L 12/03/19 07:46 Hgb 9.5 gm/dl (11.8-15.2) L 12/03/19 07:46 Hct 28.8 % (35.5-45.6) L D 12/03/19 07:46 MCV 93 fl (84-94) 12/03/19 07:46 MCH 31 pg (28-32) 12/03/19 07:46 MCHC 33 % (32-34) 12/03/19 07:46 RDW 13.3 % (13.2-15.2) 12/03/19 07:46 Plt Count 384 K/mm3 (140-440) 12/03/19 07:46 Lymph % (Auto) 6.6 % (13.4-35.0) L 12/02/19 04:24 [place] % (Auto) 7.1 % (0.0-7.3) 12/02/19 04:24 Eos % (Auto) 0.0 % (0.0-4.3) 12/02/19 04:24 Baso % (Auto) 0.1 % (0.0-1.8) 12/02/19 04:24 Lymph # 1.3 K/mm3 (1.2-5.4) 12/02/19 04:24 [place] # 1.4 K/mm3 (0.0-0.8) H 12/02/19 04:24 Eos # 0.0 K/mm3 (0.0-0.4) 12/02/19 04:24 Baso # 0.0 K/mm3 (0.0-0.1) 12/02/19 04:24 Add Manual Diff Complete 12/01/19 13:08 Total Counted 100 12/01/19 13:08 Seg Neutrophils % 86.2 % (40.0-70.0) H 12/02/19 04:24 Seg Neuts % (Manual) 88.0 % (40.0-70.0) H 12/01/19 13:08 Band Neutrophils % 0 % 12/01/19 13:08 Lymphocytes % (Manual) 7.0 % (13.4-35.0) L 12/01/19 13:08 Reactive Lymphs % (Man) 0 % 12/01/19 13:08 Monocytes % (Manual) 4.0 % (0.0-7.3) 12/01/19 13:08 Eosinophils % (Manual) 0 % (0.0-4.3) 12/01/19 13:08 Basophils % (Manual) 0 % (0.0-1.8) 12/01/19 13:08 Metamyelocytes % 1.0 % 12/01/19 13:08 Myelocytes % 0 % 12/01/19 13:08 Promyelocytes % 0 % 12/01/19 13:08 Blast Cells % 0 % 12/01/19 13:08 Nucleated RBC % Not Reportable 12/01/19 13:08 Seg Neutrophils # 16.5 K/mm3 (1.8-7.7) H 12/02/19 04:24 Seg Neutrophils # Man 12.2 K/mm3 (1.8-7.7) H 12/01/19 13:08 Band Neutrophils # 0.0 K/mm3 12/01/19 13:08 Lymphocytes # (Manual) 1.0 K/mm3 (1.2-5.4) L 12/01/19 13:08 Abs React Lymphs (Man) 0.0 K/mm3 12/01/19 13:08 Monocytes # (Manual) 0.6 K/mm3 (0.0-0.8) 12/01/19 13:08 Eosinophils # (Manual) 0.0 K/mm3 (0.0-0.4) 12/01/19 13:08 Basophils # (Manual) 0.0 K/mm3 (0.0-0.1) 12/01/19 13:08 Metamyelocytes # 0.1 K/mm3 12/01/19 13:08 Myelocytes # 0.0 K/mm3 12/01/19 13:08 Promyelocytes # 0.0 K/mm3 12/01/19 13:08 Blast Cells # 0.0 K/mm3 12/01/19 13:08 WBC Morphology Not Reportable 12/01/19 13:08 Hypersegmented Neuts Not Reportable 12/01/19 13:08 Hyposegmented Neuts Not Reportable 12/01/19 13:08 Hypogranular Neuts Not Reportable 12/01/19 13:08 Smudge Cells Not Reportable 12/01/19 13:08 Toxic Granulation Not Reportable 12/01/19 13:08 Toxic Vacuolation Not Reportable 12/01/19 13:08 Dohle Bodies Not Reportable 12/01/19 13:08 Pelger-Huet Anomaly Not Reportable 12/01/19 13:08 Dara Rods Not Reportable 12/01/19 13:08 Platelet Estimate Consistent w auto 12/01/19 13:08 Clumped Platelets Not Reportable 12/01/19 13:08 Plt Clumps, EDTA Not Reportable 12/01/19 13:08 Large Platelets Not Reportable 12/01/19 13:08 Giant Platelets Not Reportable 12/01/19 13:08 Platelet Satelliting Not Reportable 12/01/19 13:08 Plt Morphology Comment Not Reportable 12/01/19 13:08 RBC Morphology Normal 12/01/19 13:08 Dimorphic RBCs Not Reportable 12/01/19 13:08 Polychromasia Not Reportable 12/01/19 13:08 Hypochromasia Not Reportable 12/01/19 13:08 Poikilocytosis Not Reportable 12/01/19 13:08 Anisocytosis Not Reportable 12/01/19 13:08 Microcytosis Not Reportable 12/01/19 13:08 Macrocytosis Not Reportable 12/01/19 13:08 Spherocytes Not Reportable 12/01/19 13:08 Pappenheimer Bodies Not Reportable 12/01/19 13:08 Sickle Cells Not Reportable 12/01/19 13:08 Target Cells Not Reportable 12/01/19 13:08 Tear Drop Cells Not Reportable 12/01/19 13:08 Ovalocytes Not Reportable 12/01/19 13:08 Helmet Cells Not Reportable 12/01/19 13:08 [place] Bodies Not Reportable 12/01/19 13:08 [place] Rings Not Reportable 12/01/19 13:08 [place] Cells Not Reportable 12/01/19 13:08 Bite Cells Not Reportable 12/01/19 13:08 Crenated Cell Not Reportable 12/01/19 13:08 Elliptocytes Not Reportable 12/01/19 13:08 Acanthocytes (Spur) Not Reportable 12/01/19 13:08 Rouleaux Not Reportable 12/01/19 13:08 Hemoglobin C Crystals Not Reportable 12/01/19 13:08 Schistocytes Not Reportable 12/01/19 13:08 Malaria parasites Not Reportable 12/01/19 13:08 Samir Bodies Not Reportable 12/01/19 13:08 Hem Pathologist Commnt No 12/01/19 13:08 PT 12.6 Sec. (12.2-14.9) 11/27/19 10:25 INR 0.93 (0.87-1.13) 11/27/19 10:25 APTT 21.5 Sec. (24.2-36.6) L 11/27/19 10:25 Sodium 134 mmol/L (137-145) L 12/03/19 07:46 Potassium 3.9 mmol/L (3.6-5.0) 12/03/19 07:46 Chloride 96.3 mmol/L (98-107) L 12/03/19 07:46 Carbon Dioxide 23 mmol/L (22-30) 12/03/19 07:46 Anion Gap 19 mmol/L 12/03/19 07:46 BUN 14 mg/dL (9-20) 12/03/19 07:46 Creatinine 1.3 mg/dL (0.8-1.5) 12/03/19 07:46 Estimated GFR > 60 ml/min 12/03/19 07:46 BUN/Creatinine Ratio 11 % 12/03/19 07:46 Glucose 113 mg/dL (75-100) H 12/03/19 07:46 POC Glucose 149 (70-105) H 12/01/19 18:41 Calcium 9.1 mg/dL (8.4-10.2) 12/03/19 07:46 Total Bilirubin 0.40 mg/dL (0.1-1.2) 11/27/19 10:25 AST 16 units/L (5-40) 11/27/19 10:25 ALT 13 units/L (7-56) 11/27/19 10:25 Alkaline Phosphatase 94 units/L (35-129) 11/27/19 10:25 Total Protein 8.2 g/dL (6.3-8.2) 11/27/19 10:25 Albumin 3.9 g/dL (3.9-5) 11/27/19 10:25 Albumin/Globulin Ratio 0.9 % 11/27/19 10:25 Blood Type O POSITIVE 12/01/19 07:00 Antibody Screen Negative 12/01/19 07:00 Crossmatch See Detail 12/01/19 07:00 Active Medications - Current Medications Current Medications: Generic Name Dose Route Start Last Admin Trade Name Freq PRN Reason Stop Dose Admin Acetaminophen 650 mg 12/01/19 10:51 Tylenol PO Q4H PRN Pain MILD(1-3)/Fever >100.5/[place] Al Hydrox/Mg Hydrox/Simethicone 15 ml 12/02/19 06:30 12/02/19 09:40 Alum-Mag Hydrox-Simeth 111-080-33vp/5ml PO 15 ml Q4H PRN Administration Indigestion Chlorthalidone 25 mg 12/02/19 10:00 12/03/19 10:55 Thalitone PO Not Given QDAY DIANNA Famotidine 10 mg 12/02/19 10:00 12/03/19 10:23 Pepcid IV 10 mg BID DIANNA Administration Cefazolin Sodium 1 gm in 50 mls @ 100 mls/hr 12/02/19 14:00 12/03/19 13:52 Ancef/Ns 1 Gm/50 Ml IV 100 mls/hr Q8HR DIANNA Administration Protocol Metoprolol Succinate 25 mg 12/02/19 10:00 12/03/19 10:53 Metoprolol Xl PO Not Given QDAY DIANNA Morphine Sulfate 4 mg 12/01/19 10:51 12/03/19 13:50 Morphine IV 4 mg Q4H PRN Administration Pain , Severe (7-10) Naloxone HCl 0.1 mg 12/01/19 10:51 Naloxone IV Q2MIN PRN Res Rate </= 8 or 02 SAT < 92% Ondansetron HCl 4 mg 12/01/19 10:51 12/01/19 16:31 Zofran IV 4 mg Q8H PRN Administration Nausea And Vomiting Oxycodone/Acetaminophen 1 tab 12/01/19 10:51 12/03/19 10:28 Percocet 5/325 PO 1 tab Q6H PRN Administration Pain, Moderate (4-6) Polyethylene Glycol 17 gm 12/03/19 15:45 Miralax 3350 PO QDAY PRN Constipation Pravastatin Sodium 40 mg 12/02/19 10:00 12/03/19 10:51 Pravachol PO 40 mg QDAY DIANNA Administration Propafenone HCl 150 mg 12/02/19 10:00 12/03/19 10:27 Rythmol PO 150 mg DAILY DIANNA Administration Sodium Chloride 10 ml 12/01/19 22:00 12/03/19 10:56 Sodium Chloride Flush Syringe 10 Ml IV 10 ml BID DIANNA Administration Sodium Chloride 10 ml 12/01/19 10:51 Sodium Chloride Flush Syringe 10 Ml IV PRN PRN LINE FLUSH Nutrition/Malnutrition Assess - Dietary Evaluation Nutrition/Malnutrition Findings: Nutrition Notes Start: 12/02/19 11:09 Freq: Status: Active Protocol: Document 12/02/19 11:09 CW (Rec: 12/02/19 11:40 CW [id number]) Co-Sign 12/02/19 11:09 LP Nutrition Notes Need for Assessment generated from: [employer] [place] [employer],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 liq Labs/Tests Na 133 Cr1.7 BG 186 POC 149 Pertinent Medications 1/2NS Height 5 ft 9 in Weight 113.852 kg Usual Body Weight 123.6 kg [place] Body Weight (kg) 72.72 BMI 37.0 Intake Prior to Admission Excellent Weight change and time frame 8% wt loss in 3-4 months Weight Status Obese Subjective/Other Information RN Consult for MST; Pt reports weight loss within "past several months"; Per pt. UBW is approx 272. Pt denies N/V/D . Pt reports having an appetite, however the broth from the night before resulted in abd pains. Pt. reported eating 25% of last nights meal and 0% of breakfast D/T not wanting to eat breakfast at this time Burn Absent Trauma Absent GI Symptoms None Food Allergy Yes Current % PO Negligible Minimum of two criteria No Interpretation of Weight Loss (severe) >7.5% in 3 months #1 Nutrition Diagnosis Inadequate oral intake Etiology abd pain when eating cl. liq diet, hydronephrosis, and neprolithaisis As Evidenced by Signs and Symptoms weight loss of 8% in past 3-4 months and pt eating 25% of meals Is patient on ventilator? No Is Patient Ambulatory and/or Out of Bed Yes REE-([facility]-ambulatory/OOB) [ 2598.570 [id number]] Kcal/Kg value to use for calculation 19 Approximate Energy Requirements Using 2163 kcal/Kg Calculation Used for Recommendations Kcal/kg Additional Notes Protein Needs: 75 - 93 g (0.8 - 1 g pro AdBW) Fluid Needs:1 mL/ kcal Nutrition Intervention Change Diet Order: continue cl liq diet Goal #1 diet advancement Goal #2 increase PO to at least 75% of energy and protein needs Anticipated Discharge Needs: unable to determine at this time Follow-Up By: 12/04/19 Additional Comments F/U for PO intake and diet advancement - Attestation Statement I have reviewed and agreed w/ Malnutrition eval & tx plan: Yes
[2019-12-04] MEDS: ceFAZolin/NS 1 GM/50 ML 1 GM/50 ML BAG IV SCH (06:01)
[2019-12-04] MEDS: oxyCODONE /ACETAMINOPHEN 5-325MG TAB PO PRN ×2 (06:21→12:31)
[2019-12-04] MEDS: CHLORTHALIDONE 25 MG TAB PO SCH (09:58)
[2019-12-04] MEDS: METOPROLOL SUCCINATE XL 25 MG TAB PO SCH (09:58)
[2019-12-04] MEDS: PRAVASTATIN 40 MG TAB PO SCH (09:58)
[2019-12-04] MEDS: PROPAFENONE 150 MG TAB PO SCH (09:58)
[2019-12-04] MEDS: FAMOTIDINE 20 MG/2 ML INJ IV SCH (09:59)
--- NOTE | 2019-12-04 11:35 | Progress Note ---
Assessment and Plan urine clear voiding healing well home Subjective Date of service: 12/04/19 Objective - Constitutional Vitals: Vital Signs - 12hr 12/04/19 12/04/19 12/04/19 00:12 04:08 06:21 Temperature 98.0 F 98.2 F Pulse Rate 87 86 Respiratory 20 20 18 Rate Blood Pressure 108/56 114/57 O2 Sat by Pulse 94 96 Oximetry 12/04/19 08:08 Temperature 98.0 F Pulse Rate 95 H Respiratory 18 Rate Blood Pressure 132/70 O2 Sat by Pulse 98 Oximetry General appearance: Present: no acute distress - Respiratory Respiratory effort: normal Extremities: no ischemia - Gastrointestinal General gastrointestinal: Present: soft, non-tender - Labs CBC & Chem 7: 12/03/19 07:46 12/03/19 07:46 Medications & Allergies - Medications Allergies/Adverse Reactions: Allergies shellfish derived Adverse Reaction (Verified 01/20/16 12:53) Swelling Home Medications: Home Medications Medication Instructions Recorded Confirmed Last Taken Type Propafenone [Rythmol] 150 mg PO DAILY 01/06/15 12/01/19 12/01/19 03:30 History Simvastatin 40 mg PO DAILY 01/06/15 12/01/19 11/30/19 20:00 History Metoprolol Xl [Metoprolol 25 mg PO QDAY #30 tablet 02/10/16 12/01/19 12/01/19 03:30 Rx SUCCINATE ER TAB] Chlorthalidone 25 mg PO DAILY 09/09/19 12/01/19 11/30/19 09:00 History HYDROcodone/APAP 5-325 [[place] 1 each PO Q6HR PRN 11/24/19 11/24/19 Unknown History 5/325] HYDROmorphone [Dilaudid] 2 mg PO Q6HR PRN 11/24/19 12/01/19 11/30/19 14:00 History Active Medications: Generic Name Dose Route Start Last Admin Trade Name Freq PRN Reason Stop Dose Admin Acetaminophen 650 mg 12/01/19 10:51 Tylenol PO Q4H PRN Pain MILD(1-3)/Fever >100.5/[place] Al Hydrox/Mg Hydrox/Simethicone 15 ml 12/02/19 06:30 12/02/19 09:40 Alum-Mag Hydrox-Simeth 686-341-26rr/5ml PO 15 ml Q4H PRN Administration Indigestion Chlorthalidone 25 mg 12/02/19 10:00 12/04/19 09:58 Thalitone PO 25 mg QDAY DIANNA Administration Famotidine 10 mg 12/02/19 10:00 12/04/19 09:59 Pepcid IV 10 mg BID DIANNA Administration Cefazolin Sodium 1 gm in 50 mls @ 100 mls/hr 12/02/19 14:00 12/04/19 06:01 Ancef/Ns 1 Gm/50 Ml IV 100 mls/hr Q8HR DIANNA Administration Protocol Metoprolol Succinate 25 mg 12/02/19 10:00 12/04/19 09:58 Metoprolol Xl PO 25 mg QDAY DIANNA Administration Morphine Sulfate 4 mg 12/01/19 10:51 12/03/19 18:31 Morphine IV 4 mg Q4H PRN Administration Pain , Severe (7-10) Naloxone HCl 0.1 mg 12/01/19 10:51 Naloxone IV Q2MIN PRN Res Rate </= 8 or 02 SAT < 92% Ondansetron HCl 4 mg 12/01/19 10:51 12/01/19 16:31 Zofran IV 4 mg Q8H PRN Administration Nausea And Vomiting Oxycodone/Acetaminophen 1 tab 12/01/19 10:51 12/04/19 06:21 Percocet 5/325 PO 1 tab Q6H PRN Administration Pain, Moderate (4-6) Polyethylene Glycol 17 gm 12/03/19 15:45 12/03/19 18:31 Miralax 3350 PO 17 gm QDAY PRN Administration Constipation Pravastatin Sodium 40 mg 12/02/19 10:00 12/04/19 09:58 Pravachol PO 40 mg QDAY DIANNA Administration Propafenone HCl 150 mg 12/02/19 10:00 12/04/19 09:58 Rythmol PO 150 mg DAILY DIANNA Administration Sodium Chloride 10 ml 12/01/19 22:00 12/04/19 09:59 Sodium Chloride Flush Syringe 10 Ml IV 10 ml BID DIANNA Administration Sodium Chloride 10 ml 12/01/19 10:51 Sodium Chloride Flush Syringe 10 Ml IV PRN PRN LINE FLUSH
--- NOTE | 2019-12-04 11:36 | Discharge Summary ---
Short Stay Discharge Plan Activity: other (no straining ) Weight Bearing Status: Full Weight Bearing Diet: low fat, low cholesterol, low salt, diabetic Wound: open to air Special Instructions: other (inc fluids ) Follow up with: PACHECO MARCANO MD [Primary Care Provider] - 7 Days JOCY JONES MD [Staff Physician] - 7 Days
--- NOTE | 2019-12-04 12:12 | Progress Note ---
Assessment and Plan Assessment and plan: Left hydronephrosis/s/p left nephrectomy. Continue per urology. Follow-up CBC and BMP. Pain control. Atrial fibrillation. Continue metoprolol and Rythmol. Rate is currently controlled. Anemia, drop in hemoglobin Hypertension. Continue antihypertensive medications. Cont Metoprolol Hyperlipidemia. Continue simvastatin. Constipation Miralax prn. patient medically stable for dc home. History Interval history: s/p left nephrectomy Mild pain at surgical site Hospitalist Physical - Physical exam Narrative exam: GEN: Not in acute distress, lying in bed,obese HEENT: Normocephalic, atraumatic, Neck: supple, No JVD Lungs: Clear to auscultation bilaterally, no wheeze, heart;S1 and S2 reg, no murmurs Abd:soft, mild tender left flank at surg site, dressing over left flank, s Ext: No edema, no clubbing, no cyanosis Neuro: AAO X 3, no focal neurological signs - Constitutional Vitals: Temp Pulse Resp BP Pulse Ox 98.0 F 95 H 18 132/70 98 12/04/19 08:08 12/04/19 08:08 12/04/19 08:08 12/04/19 08:08 12/04/19 08:08 General appearance: Present: no acute distress Results - Labs CBC & Chem 7: 12/03/19 07:46 12/03/19 07:46 Labs: Laboratory Last Values WBC 12.0 K/mm3 (4.5-11.0) H 12/03/19 07:46 RBC 3.09 M/mm3 (3.65-5.03) L 12/03/19 07:46 Hgb 9.5 gm/dl (11.8-15.2) L 12/03/19 07:46 Hct 28.8 % (35.5-45.6) L D 12/03/19 07:46 MCV 93 fl (84-94) 12/03/19 07:46 MCH 31 pg (28-32) 12/03/19 07:46 MCHC 33 % (32-34) 12/03/19 07:46 RDW 13.3 % (13.2-15.2) 12/03/19 07:46 Plt Count 384 K/mm3 (140-440) 12/03/19 07:46 Lymph % (Auto) 6.6 % (13.4-35.0) L 12/02/19 04:24 [place] % (Auto) 7.1 % (0.0-7.3) 12/02/19 04:24 Eos % (Auto) 0.0 % (0.0-4.3) 12/02/19 04:24 Baso % (Auto) 0.1 % (0.0-1.8) 12/02/19 04:24 Lymph # 1.3 K/mm3 (1.2-5.4) 12/02/19 04:24 [place] # 1.4 K/mm3 (0.0-0.8) H 12/02/19 04:24 Eos # 0.0 K/mm3 (0.0-0.4) 12/02/19 04:24 Baso # 0.0 K/mm3 (0.0-0.1) 12/02/19 04:24 Add Manual Diff Complete 12/01/19 13:08 Total Counted 100 12/01/19 13:08 Seg Neutrophils % 86.2 % (40.0-70.0) H 12/02/19 04:24 Seg Neuts % (Manual) 88.0 % (40.0-70.0) H 12/01/19 13:08 Band Neutrophils % 0 % 12/01/19 13:08 Lymphocytes % (Manual) 7.0 % (13.4-35.0) L 12/01/19 13:08 Reactive Lymphs % (Man) 0 % 12/01/19 13:08 Monocytes % (Manual) 4.0 % (0.0-7.3) 12/01/19 13:08 Eosinophils % (Manual) 0 % (0.0-4.3) 12/01/19 13:08 Basophils % (Manual) 0 % (0.0-1.8) 12/01/19 13:08 Metamyelocytes % 1.0 % 12/01/19 13:08 Myelocytes % 0 % 12/01/19 13:08 Promyelocytes % 0 % 12/01/19 13:08 Blast Cells % 0 % 12/01/19 13:08 Nucleated RBC % Not Reportable 12/01/19 13:08 Seg Neutrophils # 16.5 K/mm3 (1.8-7.7) H 12/02/19 04:24 Seg Neutrophils # Man 12.2 K/mm3 (1.8-7.7) H 12/01/19 13:08 Band Neutrophils # 0.0 K/mm3 12/01/19 13:08 Lymphocytes # (Manual) 1.0 K/mm3 (1.2-5.4) L 12/01/19 13:08 Abs React Lymphs (Man) 0.0 K/mm3 12/01/19 13:08 Monocytes # (Manual) 0.6 K/mm3 (0.0-0.8) 12/01/19 13:08 Eosinophils # (Manual) 0.0 K/mm3 (0.0-0.4) 12/01/19 13:08 Basophils # (Manual) 0.0 K/mm3 (0.0-0.1) 12/01/19 13:08 Metamyelocytes # 0.1 K/mm3 12/01/19 13:08 Myelocytes # 0.0 K/mm3 12/01/19 13:08 Promyelocytes # 0.0 K/mm3 12/01/19 13:08 Blast Cells # 0.0 K/mm3 12/01/19 13:08 WBC Morphology Not Reportable 12/01/19 13:08 Hypersegmented Neuts Not Reportable 12/01/19 13:08 Hyposegmented Neuts Not Reportable 12/01/19 13:08 Hypogranular Neuts Not Reportable 12/01/19 13:08 Smudge Cells Not Reportable 12/01/19 13:08 Toxic Granulation Not Reportable 12/01/19 13:08 Toxic Vacuolation Not Reportable 12/01/19 13:08 Dohle Bodies Not Reportable 12/01/19 13:08 Pelger-Huet Anomaly Not Reportable 12/01/19 13:08 Dara Rods Not Reportable 12/01/19 13:08 Platelet Estimate Consistent w auto 12/01/19 13:08 Clumped Platelets Not Reportable 12/01/19 13:08 Plt Clumps, EDTA Not Reportable 12/01/19 13:08 Large Platelets Not Reportable 12/01/19 13:08 Giant Platelets Not Reportable 12/01/19 13:08 Platelet Satelliting Not Reportable 12/01/19 13:08 Plt Morphology Comment Not Reportable 12/01/19 13:08 RBC Morphology Normal 12/01/19 13:08 Dimorphic RBCs Not Reportable 12/01/19 13:08 Polychromasia Not Reportable 12/01/19 13:08 Hypochromasia Not Reportable 12/01/19 13:08 Poikilocytosis Not Reportable 12/01/19 13:08 Anisocytosis Not Reportable 12/01/19 13:08 Microcytosis Not Reportable 12/01/19 13:08 Macrocytosis Not Reportable 12/01/19 13:08 Spherocytes Not Reportable 12/01/19 13:08 Pappenheimer Bodies Not Reportable 12/01/19 13:08 Sickle Cells Not Reportable 12/01/19 13:08 Target Cells Not Reportable 12/01/19 13:08 Tear Drop Cells Not Reportable 12/01/19 13:08 Ovalocytes Not Reportable 12/01/19 13:08 Helmet Cells Not Reportable 12/01/19 13:08 Jackson-Puhi Bodies Not Reportable 12/01/19 13:08 Howells Rings Not Reportable 12/01/19 13:08 Aston Cells Not Reportable 12/01/19 13:08 Bite Cells Not Reportable 12/01/19 13:08 Crenated Cell Not Reportable 12/01/19 13:08 Elliptocytes Not Reportable 12/01/19 13:08 Acanthocytes (Spur) Not Reportable 12/01/19 13:08 Rouleaux Not Reportable 12/01/19 13:08 Hemoglobin C Crystals Not Reportable 12/01/19 13:08 Schistocytes Not Reportable 12/01/19 13:08 Malaria parasites Not Reportable 12/01/19 13:08 Samir Bodies Not Reportable 12/01/19 13:08 Hem Pathologist Commnt No 12/01/19 13:08 PT 12.6 Sec. (12.2-14.9) 11/27/19 10:25 INR 0.93 (0.87-1.13) 11/27/19 10:25 APTT 21.5 Sec. (24.2-36.6) L 11/27/19 10:25 Sodium 134 mmol/L (137-145) L 12/03/19 07:46 Potassium 3.9 mmol/L (3.6-5.0) 12/03/19 07:46 Chloride 96.3 mmol/L (98-107) L 12/03/19 07:46 Carbon Dioxide 23 mmol/L (22-30) 12/03/19 07:46 Anion Gap 19 mmol/L 12/03/19 07:46 BUN 14 mg/dL (9-20) 12/03/19 07:46 Creatinine 1.3 mg/dL (0.8-1.5) 12/03/19 07:46 Estimated GFR > 60 ml/min 12/03/19 07:46 BUN/Creatinine Ratio 11 % 12/03/19 07:46 Glucose 113 mg/dL (75-100) H 12/03/19 07:46 POC Glucose 149 (70-105) H 12/01/19 18:41 Calcium 9.1 mg/dL (8.4-10.2) 12/03/19 07:46 Total Bilirubin 0.40 mg/dL (0.1-1.2) 11/27/19 10:25 AST 16 units/L (5-40) 11/27/19 10:25 ALT 13 units/L (7-56) 11/27/19 10:25 Alkaline Phosphatase 94 units/L (35-129) 11/27/19 10:25 Total Protein 8.2 g/dL (6.3-8.2) 11/27/19 10:25 Albumin 3.9 g/dL (3.9-5) 11/27/19 10:25 Albumin/Globulin Ratio 0.9 % 11/27/19 10:25 Blood Type O POSITIVE 12/01/19 07:00 Antibody Screen Negative 12/01/19 07:00 Crossmatch See Detail 12/01/19 07:00 Active Medications - Current Medications Current Medications: Generic Name Dose Route Start Last Admin Trade Name Freq PRN Reason Stop Dose Admin Acetaminophen 650 mg 12/01/19 10:51 Tylenol PO Q4H PRN Pain MILD(1-3)/Fever >100.5/[place]ATTER[place] Al Hydrox/Mg Hydrox/Simethicone 15 ml 12/02/19 06:30 12/02/19 09:40 Alum-Mag Hydrox-Simeth 493-448-33nf/5ml PO 15 ml Q4H PRN Administration Indigestion Chlorthalidone 25 mg 12/02/19 10:00 12/04/19 09:58 Thalitone PO 25 mg QDAY DIANNA Administration Famotidine 10 mg 12/02/19 10:00 12/04/19 09:59 Pepcid IV 10 mg BID DIANNA Administration Cefazolin Sodium 1 gm in 50 mls @ 100 mls/hr 12/02/19 14:00 12/04/19 06:01 Ancef/Ns 1 Gm/50 Ml IV 100 mls/hr Q8HR DIANNA Administration Protocol Metoprolol Succinate 25 mg 12/02/19 10:00 12/04/19 09:58 Metoprolol Xl PO 25 mg QDAY DIANNA Administration Morphine Sulfate 4 mg 12/01/19 10:51 12/03/19 18:31 Morphine IV 4 mg Q4H PRN Administration Pain , Severe (7-10) Naloxone HCl 0.1 mg 12/01/19 10:51 Naloxone IV Q2MIN PRN Res Rate </= 8 or 02 SAT < 92% Ondansetron HCl 4 mg 12/01/19 10:51 12/01/19 16:31 Zofran IV 4 mg Q8H PRN Administration Nausea And Vomiting Oxycodone/Acetaminophen 1 tab 12/01/19 10:51 12/04/19 06:21 Percocet 5/325 PO 1 tab Q6H PRN Administration Pain, Moderate (4-6) Polyethylene Glycol 17 gm 12/03/19 15:45 12/03/19 18:31 Miralax 3350 PO 17 gm QDAY PRN Administration Constipation Pravastatin Sodium 40 mg 12/02/19 10:00 12/04/19 09:58 Pravachol PO 40 mg QDAY DIANNA Administration Propafenone HCl 150 mg 12/02/19 10:00 12/04/19 09:58 Rythmol PO 150 mg DAILY DIANNA Administration Sodium Chloride 10 ml 12/01/19 22:00 12/04/19 09:59 Sodium Chloride Flush Syringe 10 Ml IV 10 ml BID DIANNA Administration Sodium Chloride 10 ml 12/01/19 10:51 Sodium Chloride Flush Syringe 10 Ml IV PRN PRN LINE FLUSH Nutrition/Malnutrition Assess - Dietary Evaluation Nutrition/Malnutrition Findings: Nutrition Notes Start: 12/02/19 11:09 Freq: Status: Active Protocol: Document 12/02/19 11:09 CW (Rec: 12/02/19 11:40 CW [id number]) Co-Sign 12/02/19 11:09 LP Nutrition Notes 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 liq Labs/Tests Na 133 Cr1.7 BG 186 POC 149 Pertinent Medications 1/2NS Height 5 ft 9 in Weight 113.852 kg Usual Body Weight 123.6 kg [place] Body Weight (kg) 72.72 BMI 37.0 Intake Prior to Admission Excellent Weight change and time frame 8% wt loss in 3-4 months Weight Status Obese Subjective/Other Information RN Consult for MST; Pt reports weight loss within "past several months"; Per pt. UBW is approx 272. Pt denies N/V/D . Pt reports having an appetite, however the broth from the night before resulted in abd pains. Pt. reported eating 25% of last nights meal and 0% of breakfast D/T not wanting to eat breakfast at this time Burn Absent Trauma Absent GI Symptoms None Food Allergy Yes Current % PO Negligible Minimum of two criteria No Interpretation of Weight Loss (severe) >7.5% in 3 months #1 Nutrition Diagnosis Inadequate oral intake Etiology abd pain when eating cl. liq diet, hydronephrosis, and neprolithaisis As Evidenced by Signs and Symptoms weight loss of 8% in past 3-4 months and pt eating 25% of meals Is patient on ventilator? No Is Patient Ambulatory and/or Out of Bed Yes REE-([facility]-ambulatory/OOB) [ 2598.570 NUTR.[id number]] Kcal/Kg value to use for calculation 19 Approximate Energy Requirements Using 2163 kcal/Kg Calculation Used for Recommendations Kcal/kg Additional Notes Protein Needs: 75 - 93 g (0.8 - 1 g pro AdBW) Fluid Needs:1 mL/ kcal Nutrition Intervention Change Diet Order: continue cl liq diet Goal #1 diet advancement Goal #2 increase PO to at least 75% of energy and protein needs Anticipated Discharge Needs: unable to determine at this time Follow-Up By: 12/04/19 Additional Comments F/U for PO intake and diet advancement
[2019-12-04 12:21] VITALS: BP 120/54
== END 2019-12-04 13:31 | disposition home or self-care (01) | DRG 660 ==
LOC: 3A 06:26 → CC1 14:50 → 3B-SURG 12-02 15:54
PROVIDERS: ADMIT Urology; ATTEND Urology
PROC: 0TT10ZZ Resection of Left Kidney, Open Approach (ICD-10-PCS; principal; 2019-12-01)
PROC: 0TP5X0Z Removal of Drainage Device from Kidney, External Approach (ICD-10-PCS; 2019-12-01)
DX: N20.0 Calculus of kidney (principal); N10 Acute pyelonephritis; I10 Essential (primary) hypertension; K59.00 Constipation, unspecified; D64.9 Anemia, unspecified; J45.909 Unspecified asthma, uncomplicated; G47.30 Sleep apnea, unspecified; I48.0 Paroxysmal atrial fibrillation; K21.9 Gastro-esophageal reflux disease without esophagitis; E78.5 Hyperlipidemia, unspecified; N28.9 Disorder of kidney and ureter, unspecified; E66.9 Obesity, unspecified; Z87.11 Personal history of peptic ulcer disease; Z68.37 Body mass index [BMI] 37.0-37.9, adult; Z91.013 Allergy to seafood; Z79.899 Other long term (current) drug therapy
CPT/HCPCS: 36415; 36620; 80048; 80053; 82962; 85007; 85025; 85027; 85610; 85730; 86850; 86900; 86901; 86920; 88307; 94760; G0378; A9270-GY; J0690; J1100; J1170; J2250; J2270; J2405; J2704; J2710; J3010; J3246; J7030; J7040; J7120; P9016

== ENCOUNTER 2020-10-29 15:03 | Outpatient (CLI) | payer BC ==
--- NOTE | 2020-10-29 16:49 | Cat Scan Report ---
CT ABDOMEN AND PELVIS WITHOUT CONTRAST INDICATION / CLINICAL INFORMATION: Renal calculus TECHNIQUE: Axial CT images were obtained through the abdomen and pelvis without IV contrast. All CT scans at [facility] location are performed using CT dose reduction for ALARA by means of automated exposure control. COMPARISON: CT abdomen/pelvis dated 02/24/2020. FINDINGS: LOWER CHEST: No significant abnormality. LIVER: No significant abnormality. GALLBLADDER: No significant abnormality. PANCREAS: No significant abnormality. SPLEEN: No significant abnormality. ADRENALS: No significant abnormality. KIDNEYS / URETERS: Left-sided nephrectomy changes are seen. There is a 6-7 mm stone within the distal left ureter. The right kidney is normal without evidence of nephroureterolithiasis or obstructive ur opathy. URINARY BLADDER: There is circumferential urinary bladder wall thickening which is likely related to decompression. REPRODUCTIVE ORGANS: No significant abnormality. STOMACH / SMALL BOWEL: No significant abnormality. COLON: No significant abnormality. APPENDIX: No significant abnormality. PERITONEUM: No free fluid. No free air. No fluid collection. LYMPH NODES: No significant adenopathy. AORTA / ARTERIES: No significant abnormality. IVC / VEINS: No significant abnormality. SKELETAL SYSTEM: No significant abnormality. ADDITIONAL FINDINGS: None. IMPRESSION: 1. No right-sided nephroureterolithiasis or obstructive uropathy. 2. Left sided nephrectomy changes with small calculi in the distal left ureter. 3. Mild circumferential urinary bladder wall thickening is likely related to decompression. Urinalysi s could be performed to exclude cystitis. Signer Name: Pio Gutierrez MD Signed: 10/29/2020 4:44 PM Workstation Name: [id number]
== END 2020-10-29 15:04 | disposition home or self-care (01) ==
LOC: CT 15:03
PROVIDERS: ATTEND Urology
DX: N20.1 Calculus of ureter (principal); N28.89 Other specified disorders of kidney and ureter; Z90.5 Acquired absence of kidney
CPT/HCPCS: 74176

== ENCOUNTER 2021-01-06 10:40 | Outpatient (CLI) | payer BC ==
--- NOTE | 2021-01-06 12:36 | Cat Scan Report ---
CT ABDOMEN AND PELVIS WITHOUT CONTRAST HISTORY: RIGHT UPPER QUADRANT PAIN. COMPARISON: October 29, 2020 TECHNIQUE: CT images of the abdomen and pelvis were obtained without administration of intravenous co ntrast. All CT scans at this location are performed using CT dose reduction for ALARA by means of au tomated exposure control. FINDINGS: Lungs/bones: Lung bases are clear Abdomen/pelvis: Within limits of noncontrast exam the liver, spleen, adrenal glands, pancreas appear normal. There may be fatty infiltration of the liver. Gallbladder appears normal. No dominant adenop athy is seen. Surgical clips are seen overlying the left kidney. Calcifications stone in the distal l eft ureter measures 6 to 7 mm is unchanged since prior examination. Left nephrectomy changes are note d. No right renal stones are seen. Appendix appears normal. No evidence for bowel obstruction. No acute bone findings are seen. IMPRESSION: 1. Left-sided nephrectomy with calcification in the distal left ureter. No significant change since p rior exam. 2. Mild urinary bladder wall thickening, nonspecific. 3. Mild fatty infiltration liver. Signer Name: Jose G Yin MD Signed: 01/06/2021 12:31 PM Workstation Name: [id number]
== END 2021-01-06 10:41 | disposition home or self-care (01) ==
LOC: CT 10:40
PROVIDERS: ATTEND Urology
DX: K76.0 Fatty (change of) liver, not elsewhere classified (principal); N28.89 Other specified disorders of kidney and ureter
CPT/HCPCS: 74176

== ENCOUNTER 2021-05-17 07:52 | Outpatient (CLI) | payer BC ==
--- NOTE | 2021-05-17 08:56 | Cat Scan Report ---
CT ABDOMEN AND PELVIS WITHOUT CONTRAST INDICATION / CLINICAL INFORMATION: RIGHT UPPER QUADRANT PAIN,OTHER MICROSCOPIC HEMATURIA. TECHNIQUE: Axial CT images were obtained through the abdomen and pelvis without IV contrast. Sagittal and villar l reformatted images. All CT scans at this location are performed using CT dose reduction for ALARA b y means of automated exposure control. COMPARISON: 01/06/2021 FINDINGS: LOWER CHEST: No significant abnormality. LIVER: No significant abnormality. GALLBLADDER: No significant abnormality. BILE DUCTS: No significant abnormality. PANCREAS: No significant abnormality. SPLEEN: No significant abnormality. ADRENALS: No significant abnormality. RIGHT KIDNEY and URETER: The right kidney is normal size, contour and position. There is suggestion o f scattered punctate stones in the right kidney. No focal right renal lesion, ureteral stone or hydro nephrosis. LEFT KIDNEY and URETER: Stable left nephrectomy changes. Stable calcifications in the remaining dista l left ureter. STOMACH and SMALL BOWEL: No significant abnormality. COLON: No significant abnormality. APPENDIX: No significant abnormality. PERITONEUM: No free fluid. No free air. No fluid collection. LYMPH NODES: No significant adenopathy. AORTA and ARTERIES: No significant abnormality. IVC and VEINS: No significant abnormality. URINARY BLADDER: No significant abnormality. REPRODUCTIVE ORGANS: No significant abnormality. ADDITIONAL FINDINGS: None. SKELETAL SYSTEM: No significant abnormality. IMPRESSION: No acute inflammatory process. Punctate calyceal stones are suspected in the right kidney. No hydronephrosis. Stable left nephrectomy changes as described. Signer Name: Delfino Martinez Jr, MD Signed: 05/17/2021 8:51 AM Workstation Name: [id number]
== END 2021-05-17 07:53 | disposition home or self-care (01) ==
LOC: CT 07:52
PROVIDERS: ATTEND Urology
DX: N28.89 Other specified disorders of kidney and ureter (principal); R31.29 Other microscopic hematuria; Z90.5 Acquired absence of kidney
CPT/HCPCS: 74176

== ENCOUNTER 2021-12-07 07:28 | Outpatient (CLI) | payer BC ==
--- NOTE | 2021-12-07 09:09 | Cat Scan Report ---
CT ABDOMEN AND PELVIS WITHOUT CONTRAST INDICATION / CLINICAL INFORMATION: CALCULUS OF KIDNEY N20.0. TECHNIQUE: Axial CT images were obtained through the abdomen and pelvis without IV contrast. All CT scans at [facility] location are performed using CT dose reduction for ALARA by means of automated exposure control. COMPARISON: CT abdomen and pelvis without contrast from 05/17/2021. FINDINGS: LOWER CHEST: No significant abnormality. LIVER: No significant abnormality. GALLBLADDER: No significant abnormality. BILE DUCTS: No significant abnormality. PANCREAS: No significant abnormality. SPLEEN: No significant abnormality. ADRENALS: No significant abnormality. RIGHT KIDNEY/URETER: No significant abnormality. LEFT KIDNEY/URETER: Stable total left nephrectomy changes without a suspicious abnormality along the left renal bed. Multiple distal left ureteral stones versus other calcifications immediately adjacent to the distal third of the left ureter unchanged in measure up to 7 mm on image 62 of the coronal se staci. STOMACH/SMALL BOWEL: No significant abnormality. COLON: No significant abnormality. APPENDIX: No significant abnormality. PERITONEUM: No free fluid. No free air. No fluid collection. LYMPH NODES: No significant adenopathy. VASCULATURE: No significant abnormality. URINARY BLADDER: No significant abnormality. REPRODUCTIVE ORGANS: There is similar mild enlargement of the prostate gland without other significan t abnormalities. ADDITIONAL FINDINGS: None. BONES: No acute findings or significant interval changes. IMPRESSION: 1. No significant right renal or ureteral stone is identified. 2. Stable distal left ureteral stones versus calcifications immediately adjacent to the distal left u reter as above. 3. No other significant interval changes. Signer Name: Shankar Sanchez MD Signed: 12/07/2021 9:05 AM Workstation Name: [id number]
== END 2021-12-07 07:29 | disposition home or self-care (01) ==
LOC: CT 07:28
PROVIDERS: ATTEND Urology
DX: N20.0 Calculus of kidney (principal); N40.0 Benign prostatic hyperplasia without lower urinary tract symptoms
CPT/HCPCS: 74176